=== PATIENT | male | born 1935 | race Caucasian/White ===

== ENCOUNTER 2017-02-07 20:54 | Emergency (ER) | payer MEDICARE, BC | END 2017-02-08 00:47 | disposition home or self-care (01) | LOC: D.ER 20:54 | DX: S42.031A Displaced fracture of lateral end of right clavicle, initial encounter for closed fracture (principal); W01.0XXA Fall on same level from slipping, tripping and stumbling without subsequent striking against object, initial encounter; Y93.89 Activity, other specified; Y92.129 Unspecified place in nursing home as the place of occurrence of the external cause ==

== ENCOUNTER 2017-02-22 10:19 | Inpatient (IN) | payer MEDICARE, BC ==
[~2017-02-22] VITALS: Ht 170.2 cm; Wt 63.5 kg
[2017-02-22 12:22] LABS: BASOPHILS 0 % (0-2); EOSINOPHILS 0.4 % (0-7); HEMATOCRIT 37.8 % (42.0-54.0); IMMATURE GRANULOCYTES 0.2 % (0-5); LYMPHOCYTES 11.6 % (15-50); MCHC 31.7 g/dL (31.0-37.0); MCV 97.7 fL (80.0-100.0); MEAN PLATELET VOLUME 9.9 fL (7.4-10.4); MONOCYTES 5.3 % (2-11); NEUTROPHILS 82.5 % (40-80); PLATELET COUNT 293 10x3/uL (130-400); RBC 3.87 10x6/uL (4.20-6.10); RDW 13.7 % (11.5-14.5)
[2017-02-22 12:37] LABS: INR 1.05 (0.85-1.17); PROTIME 13.6 SECONDS (11.6-15.0)
[2017-02-22 12:44] LABS: ALKALINE PHOSPHATASE 75 U/L (46-116); ALT (SGPT) 27 U/L (10-68); BILIRUBIN - TOTAL 0.29 mg/dL (0.2-1.3); CALC OSMOLALITY 285 mosm/kg (275-300); CALCIUM 8.5 mg/dL (8.5-10.1); CARBON DIOXIDE 30.5 mmol/L (21.0-32.0); CHLORIDE - SERUM 105 mmol/L (98-107); GLUCOSE 158 mg/dL (74-106); POTASSIUM - SERUM 3.9 mmol/L (3.5-5.1); PROTEIN - SERUM 7.3 g/dL (6.4-8.2); SODIUM 141 mmol/L (136-145); UREA NITROGEN 18 mg/dL (7-18); eGFR NON AFRICAN AMERICAN 76 mL/min (90-120)
[2017-02-22 13:04] LABS: APPEARANCE CLEAR (CLEAR); BILIRUBIN NEGATIVE (NEGATIVE); COLOR YELLOW (YELLOW); GLUCOSE NEGATIVE (NEGATIVE); KETONE NEGATIVE (NEGATIVE); LEUKOCYTE ESTERASE 1+ (NEGATIVE); NITRITE NEGATIVE (NEGATIVE); PROTEIN NEGATIVE (NEGATIVE); UROBILINOGEN NORMAL (NORMAL)
[2017-02-22 13:05] LABS: BACTERIA FEW /hpf (NONE SEEN); EPITHELIAL CELLS OCC /hpf (0-5); MUCUS <1+ /lpf (NONE SEEN); WHITE CELLS - URINE 0-5 /hpf (0-5)
--- NOTE | 2017-02-22 13:30 | NUR ---
RECEIVED TO FLOOR FROM ER, DAUGHTER AT BEDSIDE, ORIENTED TO ROOM, BED LOWEST POSITION WILL CONTINUE TO MONITOR
[2017-02-22] MEDS ORDERED: ARICEPT10 MG PO (13:57)
[2017-02-22] MEDS ORDERED: CARBIDOPA-LEVO1 EAC2 PO (13:58)
[2017-02-22] MEDS ORDERED: CALCIUM 600+D T1 TA1 PO (13:58)
[2017-02-22] MEDS ORDERED: COREG6.25 MG PO (13:59)
[2017-02-22] MEDS ORDERED: VITAMIN D31000 UNI2 PO (14:00)
[2017-02-22] MEDS ORDERED: NAMENDA10 MG PO (14:01)
[2017-02-22] MEDS ORDERED: HYDROCODON-ACE1 EAC7 PO (14:01)
[2017-02-22] MEDS ORDERED: SENNA PLUS TA1 UDTAB PO (14:02)
[2017-02-22] MEDS ORDERED: ULTRAM50 MG PO (14:03)
[2017-02-22] MEDS ORDERED: ACETAMINOPHEN325 MG PO (14:03)
[2017-02-22] MEDS ORDERED: EFFEXOR XR37.5 MG PO (14:04)
[2017-02-22 16:14] VITALS: BP 133/86
[2017-02-22 17:53] VITALS: BP 133/86; BMI 21.9
--- NOTE | 2017-02-22 19:15 | NUR ---
PT IS LYING ON RT SIDE, SEARCHED FOR IV, WAS ADVISED PT HAD IV IN RT FOREARM, NO IV FOUND, STARTED IV IN PT RT WRIST, PT RT HAND HAS CONTINUOUS SHAKING, UNSURE IF TIS IS NORMAL FOR PT, WILL REVIEW H&P. STARTED N/S ON PT, PT REPORTED PAIN AT 6 ADMIN MORPHINE ORDERED, PLACED CALL LIGHT ON BED WITHIN REACH AND BED IS IN LOW POSITION
[2017-02-22 20:00] VITALS: BP 129/89
--- NOTE | 2017-02-22 23:53 | NUR ---
SURGICAL TECHNOLOGIST WENT TO GET PT V/S AND PT HAS PULLED OUT IV IN RT FOREARM, PT TEMP IS 102.[address] TEJADA IN REGARDS TO AN ORDER TO BRING PT TEMP DOWN.
--- NOTE | 2017-02-22 23:58 | NUR ---
SPOKE TO CHARGE NURSE Chuyita AGUILERA RN IN REGARDS TO PT FEVER AND PENDING RETURN CALL FROM DR WILSON. ADVISED TO GIVE PT 650MG TYLENOL. ALREADY HAVE COOL RAG ON PT FOREHEAD WILL CONTINUE LUKASZ MONITOR
[2017-02-23] VITALS: BP 104/58; BP 96/54
--- NOTE | 2017-02-23 00:27 | NUR ---
RESITED PT IV TO LT WRIST, ASSISTED PT WIT TYLENOL PT REFUSED AT FIRST, EXPLAINED TEMP WAS AT 102.2 AND WE NEEDED TO GET IT LOWERED, APPLIED COLD WASH CLOTH TO FORHEAD WILL CONTINUE TO MONITOR
--- NOTE | 2017-02-23 01:06 | NUR ---
PT IS LYING ON BACK, EYES CLOSED, EVEN RISE AND FALL OF CHEST, NO SIGNS OF DISTRESS, WILL CONTINUE TO MONITOR. TEMP RECHECKED AND IS AT 100.4
--- NOTE | 2017-02-23 02:08 | NUR ---
WAD BLANKING PRESS ADJUSTER GAVE PT BATH AND PT PULLED OUT IV, WILL NEED TO RESITE AFTER ALLEE IS COMPLETE WITH BED BATH
[2017-02-23 03:47] VITALS: BP 91/45
--- NOTE | 2017-02-23 06:00 | NUR ---
EYES CLOSED RESPIRATIONS WITH EASE AND UNLABORED.
--- NOTE | 2017-02-23 07:30 | NUR ---
RECIEVED PT DURING WALKING ROUNDS, PT RESTING IN BED WITH NO COMPLAINTS OF PAIN OR DISCOMFORT. PT IS VERY SHAKEY AND IS GRABBING AT THINGS DURING ASSESSMENT. ATTEMPTED TO HELP CALM PT. ASSESSMENT DONE PER FLOWSHEET. BED IN LOW POSITION AND CALL LIGHT WITHIN REACH. WILL CONTINUE TO MONITOR.
[2017-02-23 08:29] VITALS: BP 125/82
[2017-02-23 12:33] LABS: BASOPHILS 0.1 % (0-2); EOSINOPHILS 0.5 % (0-7); HEMATOCRIT 31.9 % (42.0-54.0); HEMOGLOBIN 10.2 g/dL (13.5-17.5); IMMATURE GRANULOCYTES 0.1 % (0-5); LYMPHOCYTES 23.6 % (15-50); MCH 30.9 pg (26.0-34.0); MCV 96.7 fL (80.0-100.0); MEAN PLATELET VOLUME 9.8 fL (7.4-10.4); MONOCYTES 8.6 % (2-11); NEUTROPHILS 67.1 % (40-80); PLATELET COUNT 311 10x3/uL (130-400); RDW 13.9 % (11.5-14.5); WBC 8.4 10x3/uL (4.8-10.8)
[2017-02-23 13:01] LABS: ALBUMIN 2.7 g/dL (3.4-5.0); ANION GAP 11.8 mmol/L (8-16); BILIRUBIN - TOTAL 0.41 mg/dL (0.2-1.3); CARBON DIOXIDE 29.4 mmol/L (21.0-32.0); CREATININE - SERUM 1.2 mg/dL (0.6-1.3); POTASSIUM - SERUM 4.2 mmol/L (3.5-5.1); PROTEIN - SERUM 6.7 g/dL (6.4-8.2)
[2017-02-23 13:06] VITALS: BP 133/85
[2017-02-23 15:48] VITALS: Ht 170.2 cm; Wt 63.5 kg
[2017-02-23 16:29] VITALS: BP 121/79
[2017-02-23 20:00] VITALS: BP 149/76
--- NOTE | 2017-02-23 20:34 | NUR ---
AWAKE, WITH CONFUSION NOTED. PULLING AT ELAINE. ATTEMPTED TO REDIRECT WITHOUT SUCCESS. IV INFUSING TO RIGHT FOREARM WITHOUT REDNESS OR EDEMA NOTED. SCD INTACT. PIN ALARM IN PLACE. CL IN REACH
--- NOTE | 2017-02-23 23:08 | NUR ---
EYES CLOSED RESPIRATIONS WITH EASE AND UNLABORED.
[2017-02-24 01:31] LABS: BASOPHILS 0.1 % (0-2); EOSINOPHILS 0.3 % (0-7); HEMATOCRIT 28.8 % (42.0-54.0); HEMOGLOBIN 9.1 g/dL (13.5-17.5); IMMATURE GRANULOCYTES 0.4 % (0-5); LYMPHOCYTES 16.7 % (15-50); MCH 30.6 pg (26.0-34.0); MCHC 31.6 g/dL (31.0-37.0); MEAN PLATELET VOLUME 10.6 fL (7.4-10.4); NEUTROPHILS 75.5 % (40-80); RBC 2.97 10x6/uL (4.20-6.10); RDW 13.7 % (11.5-14.5)
[2017-02-24 01:37] LABS: PLATELET COUNT 219 10x3/uL (130-400); WBC 18.7 10x3/uL (4.8-10.8)
[2017-02-24 03:21] VITALS: BP 115/79
--- NOTE | 2017-02-24 03:29 | NUR ---
UNABLE TO ASSESS VERBAL PAIN DUE TO PATIENTS BASELINE STATUS.
--- NOTE | 2017-02-24 03:31 | NUR ---
RETURNED TO ROOM FROM OR. AROUSES TO VERBAL STIMULI. O2 @ 2L PER NC ON. SPO2 @ 97% VS 115/79 P 103 R 22 T 97.2 DRSG TO RIGHT HIP INTACT WITHOUT DRAINAGE NOTED. CL IN REACH. BOX ALARM ON AND ATTACHED TO PATIENT.
[2017-02-24 04:00] VITALS: BP 115/79
[2017-02-24 05:59] LABS: BASOPHILS 0.1 % (0-2); EOSINOPHILS 0 % (0-7); IMMATURE GRANULOCYTES 0.5 % (0-5); LYMPHOCYTES 7.1 % (15-50); MCH 31.2 pg (26.0-34.0); MCHC 33.5 g/dL (31.0-37.0); MEAN PLATELET VOLUME 10.2 fL (7.4-10.4); MONOCYTES 8.2 % (2-11); NEUTROPHILS 84.1 % (40-80); RDW 15.3 % (11.5-14.5)
[2017-02-24 06:20] LABS: HEMATOCRIT 37.9 % (42.0-54.0); HEMOGLOBIN 12.7 g/dL (13.5-17.5); RBC 4.07 10x6/uL (4.20-6.10)
[2017-02-24 06:21] LABS: MCV 93.1 fL (80.0-100.0); PLATELET COUNT 263 10x3/uL (130-400)
[2017-02-24 06:24] LABS: ALBUMIN 2.4 g/dL (3.4-5.0); BILIRUBIN - TOTAL 1.05 mg/dL (0.2-1.3); CALCIUM 7.7 mg/dL (8.5-10.1); CREATININE - SERUM 1.3 mg/dL (0.6-1.3); PROTEIN - SERUM 5.9 g/dL (6.4-8.2)
[2017-02-24 06:30] LABS: ANION GAP 18.3 mmol/L (8-16); CARBON DIOXIDE 21.2 mmol/L (21.0-32.0); POTASSIUM - SERUM 5.5 mmol/L (3.5-5.1)
--- NOTE | 2017-02-24 07:30 | NUR ---
RECIEVED PT DURING WALKING ROUNDS, PT RESTING IN BED WITH NO COMPLAINTS OF PAIN OR DISCOMFORT AT THIS TIME. ASSESSMENT DONE PER FLOWSHEET. BED IN LOW POSITION AND CALL LIGHT WITHIN REACH. WILL CONTINUE TO MONITOR.
[2017-02-24 09:15] VITALS: BP 108/83
--- NOTE | 2017-02-24 09:27 | OP ---
PATIENT NAME: BRIGETTE SUE MEDICAL RECORD: [id number] :34 LOCATION:[id number] ADMISSION DATE:02/22/17 SURGEON: LANI BROWN DO OPERATION DATE: 02/22/17 DATE OF OPERATION: 02/23/2017 PROCEDURE PERFORMED: A right intramedullary exchange now from a short nail to a long nail. INDICATIONS: Mr. Sue is an 81-year-old demented male who had had a right hip intertrochanteric hip fracture approximately 6 weeks ago, then fell 3-4 days ago and sustained a periprosthetic femoral shaft fracture. It was distal to the implant of the short nail that was put in and it fractured the femur distal to that. He had been on the OR schedule and had not been able to be operated on for the last few days and I was asked to do the operation per Dr. Abebe. The patient's family was called and discussed the treatment options and they decided to proceed forward, as well as the risks and benefits were discussed with them, decided to proceed forward with the procedure. PREOPERATIVE DIAGNOSIS: Right periprosthetic femoral shaft fracture that is closed. POSTOPERATIVE DIAGNOSIS: Right periprosthetic femoral shaft fracture that is closed. DESCRIPTION OF PROCEDURE: Mr. Sue was taken to the operative suite, placed in supine position, placed over on the fracture table and given general anesthetic by anesthesia. A time-out was done at that time and Ancef was given to the patient as preoperative antibiotics. During the timeout, there was the correct side and site and correct procedures we are doing. After that, the patient was placed on the fracture table. The right leg was placed in a stirrup. The left leg was strapped to the same arm of the fracture table with a pillow around it, every bony prominences well padded at that time. The patient was slid down to the post and traction was placed on the right femur. At that time, x-rays were taken to assess correct position during the operation. The site was then prepped and draped in sterile fashion with ChloraPrep and procedure began at that time. The short nail that was taken out was a Synthes TFN nail. Incision was first made at the greater trochanter just proximal to that. The set screw was backed off and then the lag screw that was up into the femoral head and neck was taken out. At that time, the extraction device was placed into the nail itself at the trochanter and the distal locking screw was removed also. The nail extractor after the lag screw and distal locking screw were removed was then used to back the nail out. At that time, the attention was drawn to the fracture itself, spiral fracture of the femoral shaft, and an incision was made on the lateral side of the femur for the femoral shaft to be accessed. The fracture was then reduced using a reduction clamp and a single cable was passed around the femur, careful to not catch any other soft tissue directly around the femur and tightened and then cramped in, the excess cable was cut off. The fracture then seemed to be in good position and excellent reduction. Then, the guidewire for the gamma nail was used and entered into the trochanter and advanced down the femoral shaft. Once I past the fracture site and into the distal femur just above the patella, it was then reamed starting at 11 and reamed to a 13. The size was also taken at that time to be a 400 mm nail and 11 mm in diameter. The nail was then placed down the shaft to the distal extent OPERATIVE REPORT [id number] BRIGETTE SUE under fluoroscopy, ensuring good placement. At that time, the lag screw was placed into the femoral neck and head, a size of 100 mm. This was entered under fluoroscopy as well, ensuring good position both on the AP and lateral. The set screw was then placed. The proximal portion of the nail and the distal locking screws were placed at that time and done with perfect circles and under fluoroscopy, 2 distal locking screws were placed. The wounds were then copiously irrigated. At that time, the patient was given a unit of packed red cells and had another one before when he arrived to PACU. After being irrigated, the IT band along the lateral side was closed with 0 Vicryl in the [id number] stitches as well as a running stitch and the skin was closed using 2-0 inverted interrupted sutures. The distal locking screw incisions were closed with 3-0 Monocryl in horizontal mattress fashion. The skin then at the larger incisions more proximal to the distal screws were closed using 2 ZipLine devices. The leg was cleaned thoroughly and Adaptic, 4 x 4s, ABD and Medipore tape were placed on the proximal incisions and a single 4 x 4 and Tegaderm were placed over the distal incisions. The patient was awakened in the operating room in stable condition and taken to PACU for recovery. ESTIMATED BLOOD LOSS: 600 mL. TRANSINT:[id number] Voice Confirmation ID: [id number] DOCUMENT ID: [id number] LANI BROWN DO at 0927 CC: [id number] DICTATION DATE: 02/24/17300 HAND TENNIS BALL COVERER: 02/24/17 0545 ADM IN [place] [id number] [place] [address]
[2017-02-24 12:57] VITALS: BP 114/59
--- NOTE | 2017-02-24 13:50 | NUR ---
PT PULLED DRESSING OFF HIP AT THIS TIME, REAPPLIED DRESSING. WILL CONTINUE TO MONITOR.
[2017-02-24 15:45] VITALS: BP 111/65
[2017-02-24 20:00] VITALS: BP 92/51
[2017-02-25] VITALS (12 sets, daily range): BP systolic 96–148; BP diastolic 37–97
--- NOTE | 2017-02-25 03:08 | NUR ---
ASSESSED, AT THE BEGINNING OF THE SHIFT. THE RIGHT LEG HAS AN INCISION TO THE HIP WITH A DRESSING CLEAN, DRY AND INTACT. MEDS WERE CRUSHED AND GIVEN WITH PUDDING. HIS O2 IS IN PLACE MOST OF THE TIME AND THERE IS A ELAINE ALSO THAT IS DRAINING DERREK URINE. WHEN CHECKED ON THE TELEMETRY SHOWED SINUS TACH AT 103. WE ARE MAKING SURE HE IS TURNING FOR COMFORT AND SKIN CARE. THE BED IS LOW, RAILS UP X'S 2 WITH A BED ALARM IN PLACE AND THE CALL LIGHT AT HAND.
[2017-02-25 05:36] LABS: LYMPHOCYTES 22.5 % (15-50); MCH 30.9 pg (26.0-34.0); MCHC 33.9 g/dL (31.0-37.0); MEAN PLATELET VOLUME 9.9 fL (7.4-10.4); PLATELET COUNT 221 10x3/uL (130-400); RDW 15.4 % (11.5-14.5)
[2017-02-25 05:37] LABS: HEMATOCRIT 23.6 % (42.0-54.0); MCV 91.1 fL (80.0-100.0); RBC 2.59 10x6/uL (4.20-6.10); WBC 9.6 10x3/uL (4.8-10.8)
[2017-02-25 06:19] LABS: ALBUMIN 1.9 g/dL (3.4-5.0); BILIRUBIN - TOTAL 0.65 mg/dL (0.2-1.3); CALCIUM 7.5 mg/dL (8.5-10.1); CARBON DIOXIDE 25.7 mmol/L (21.0-32.0); CREATININE - SERUM 1.1 mg/dL (0.6-1.3); PROTEIN - SERUM 5.3 g/dL (6.4-8.2)
[2017-02-25 06:21] LABS: ANION GAP 11.2 mmol/L (8-16); POTASSIUM - SERUM 3.9 mmol/L (3.5-5.1)
--- NOTE | 2017-02-25 07:45 | NUR ---
PT ASSESSMENT COMPLETE SEE FLOWSHEET DRESSING TO RIGHT HIP INTACT. PIV TO RIGHT FORARM.
--- NOTE | 2017-02-25 10:10 | NUR ---
LYING SUPINE WITH HOB 0 DEGREES. IV PATENT AND AARON MAT ALARM IN USE. DOOR OPEN AND SRX2. RESPIRATIONS EVEN AND NON LABORED. CALL LIGHT IN REACH, WILL CONTINUE WITH PLAN OF CARE.
--- NOTE | 2017-02-25 11:40 | NUR ---
INITITATED FIRST OF 2 UNITS OF PRBCS PER ORDER PER LITHOGRAPH PRINTER.
--- NOTE | 2017-02-25 14:33 | NUR ---
NUTRITION MONITORING & EVAL CHART REVIEWED, PT SLEEPING SOUNDLY. PUREED/HONEY THICK LIQUID DIET. ONLY 25% INTAKE LUNCH. WILL CONTINUE TO MONITOR PO INTAKE, PROVIDE CURRENT DIET. RD FOLLOWING
--- NOTE | 2017-02-25 15:00 | NUR ---
PT TOLERATED 1ST UNIT WELL PIV RESITED X 2 FOR BLOOD INFUSION DUE TO PT PULLING IT OUT. LAST RESITE WAS 20 GA TO LEFT FORARM WRAPPED LOOSLY WITH ALINA TO PROTECT.
--- NOTE | 2017-02-25 15:45 | NUR ---
2ND UNIT INITIATED PT WITH NO COMPLAINTS TOLERATED 1ST UNIT WELL B/P STABLE AND PT REMAINS IN SINUS TACH PER MONITOR.
--- NOTE | 2017-02-25 17:40 | NUR ---
PT VOMITING PROJECTILE COFFEE GROUND EMESIS LARGE AMOUNT PT TEMP INCREASED TO 102.[address] BROWN DIRECTOR NEW PRODUCT FOR DR TEJADA ORDER RECIEVED TO CONSULT GI AND GET STAT H&H DR SHAH ON FLOOR NOTIFIED OF CONSULT AND ORDER RECIEVED TO TRANSFER TO ICU. REPORT CALLED TO JOY IN ICU AND PT TRANSFTERED VIA BED TO ROOM 2308.
[2017-02-25 17:46] LABS: HEMATOCRIT 28.2 % (42.0-54.0); HEMOGLOBIN 9.6 g/dL (13.5-17.5)
--- NOTE | 2017-02-25 18:28 | NUR ---
PT DAUGHTER ATTEMPTED TO BE NOTIFIED VIA PHONE MESSAGE LEFT FOR RETURN CALL
--- NOTE | 2017-02-25 18:29 | NUR ---
183 PT RECIEVED FROM THE FLOOR VIA BED .. NGT IS IN LEFT NARE PLACED TO THE ILWS ON ARRIVAL AND 100CC OF CLEAR DIAZ COFFEE GROUND EMSIS RETURNED.. PT HAS A PIV IN THE LEFT FOREARM SECURED WITYH KERLEX GAUZE.. THERE IS FLUID NS INFUSING AT 100CC/HR.. ELAINE CATH IN PLACE WITH CLEAR YELLOW URINR IN COLLECTION BAG.. SR ON HEART MONITOR.. ROOM AIR O2.. PT IS NOT VERY CONVERSIVE BUT DOES FOLLOW COMMANDS.. 1834 PORT X RAY DONE AT THE BEDSIDE..
--- NOTE | 2017-02-25 19:15 | NUR ---
RECEIVED CARE OF PT, ASSESSMENT PER FLOWSHEET. PT ORIENTED TO SELF ONLY, DOES FOLLOW COMMANDS AT TIMES, RT THIGH DRESSING CDI, PPP, HR ST AT A RATE OF 114. POSITIONED FOR COMFORT, NGT PLACEMENT VERIFIED WITH SMALL AIR BOLUS, LIGHT DIAZ TO PINK DRAINAGE NOTED PER SUCTION.
--- NOTE | 2017-02-25 21:28 | NUR ---
DR SHAH CALLED, UPDATED REGARDING PT CONDITION AND STATUS, ORDERS RECEIVED.
--- NOTE | 2017-02-25 23:15 | NUR ---
REASSESSMENT PER FLOWSHEET, NO ACUTE CHANGES NOTED AT THIS TIME, CONT TO MONITOR.
[2017-02-26] VITALS (24 sets, daily range): BP systolic 102–179; BP diastolic 63–98
[2017-02-26 01:00] LABS: HEMATOCRIT 29.2 % (42.0-54.0); HEMOGLOBIN 9.9 g/dL (13.5-17.5)
--- NOTE | 2017-02-26 01:40 | NUR ---
PT RESTING IN BED WITH EYES CLOSED, VSS, CONT POC.
--- NOTE | 2017-02-26 02:55 | NUR ---
REASSESSMENT PER FLOWSHEET. HR SR ON CM AT A RATE OF 97, POSITIONED FOR COMFORT, RT THIGH DRESSING REMAINS CDI.
--- NOTE | 2017-02-26 06:00 | NUR ---
NO VISITORS PRESENT AT THIS TIME, VSS, CONT POC.
[2017-02-26 06:18] LABS: BASOPHILS 0.1 % (0-2); EOSINOPHILS 0.2 % (0-7); HEMATOCRIT 28.5 % (42.0-54.0); HEMOGLOBIN 9.6 g/dL (13.5-17.5); IMMATURE GRANULOCYTES 0.3 % (0-5); LYMPHOCYTES 14.1 % (15-50); MCHC 33.7 g/dL (31.0-37.0); MEAN PLATELET VOLUME 9.7 fL (7.4-10.4); MONOCYTES 9.3 % (2-11); PLATELET COUNT 249 10x3/uL (130-400); RDW 15.1 % (11.5-14.5); WBC 10.1 10x3/uL (4.8-10.8)
[2017-02-26 06:19] LABS: MCV 89.1 fL (80.0-100.0)
[2017-02-26 06:23] LABS: INR 1.29 (0.85-1.17); PROTIME 15.9 SECONDS (11.6-15.0)
[2017-02-26 06:29] LABS: ALBUMIN 1.9 g/dL (3.4-5.0); ALKALINE PHOSPHATASE 34 U/L (46-116); ALT (SGPT) 19 U/L (10-68); BILIRUBIN - TOTAL 1.43 mg/dL (0.2-1.3); CALC OSMOLALITY 268 mosm/kg (275-300); CALCIUM 7.3 mg/dL (8.5-10.1); CARBON DIOXIDE 25.5 mmol/L (21.0-32.0); CHLORIDE - SERUM 103 mmol/L (98-107); GLUCOSE 88 mg/dL (74-106); POTASSIUM - SERUM 3.5 mmol/L (3.5-5.1); PROTEIN - SERUM 5.5 g/dL (6.4-8.2); SODIUM 134 mmol/L (136-145); UREA NITROGEN 17 mg/dL (7-18); eGFR NON AFRICAN AMERICAN 76 mL/min (90-120)
--- NOTE | 2017-02-26 07:30 | NUR ---
REC'ED REPORT ON OUT GOING RN - PT LYING SUPINE IN BED - RESIRATIONS REG RATE AND RHYTHM
--- NOTE | 2017-02-26 08:00 | NUR ---
ANESTHEIOLOGIST AND TEAM AT [facility] TO SET UP FOR EGD THIS ALucia KEYES ON UNIT FOR ASSESSMENT CPOC
--- NOTE | 2017-02-26 10:15 | NUR ---
PROCEDURE COMPLETE SEE FLOW SHEET
--- NOTE | 2017-02-26 10:22 | NUR ---
EGD WITH TEVA COMPLETED AT 10:15 - DR. SHAH STATED DIET SIPS OF CLEAR LIQUIDS, TO ORDER ZOFRAN DRIP, CARAFATE, AND IF STABLE MAY TRANSFERR TOMORROW. SEE FLOW SHEET
--- NOTE | 2017-02-26 11:00 | NUR ---
DR. SHAH ON UNIT - DISCUSSED PROCEDURE OUT COME WITH DTR (POA) - CPOC
[2017-02-26 11:13] LABS: HEMATOCRIT 28.4 % (42.0-54.0); HEMOGLOBIN 9.5 g/dL (13.5-17.5)
[2017-02-26 11:46] LABS: APPEARANCE CLEAR (CLEAR); BILIRUBIN NEGATIVE (NEGATIVE); COLOR YELLOW (YELLOW); GLUCOSE NEGATIVE (NEGATIVE); KETONE NEGATIVE (NEGATIVE); LEUKOCYTE ESTERASE NEGATIVE (NEGATIVE); NITRITE NEGATIVE (NEGATIVE); PROTEIN TRACE mg/dL (NEGATIVE); SPECIFIC GRAVITY 1.005 (1.005-1.020); UROBILINOGEN NORMAL (NORMAL)
[2017-02-26 11:47] LABS: BACTERIA NONE SEEN /hpf (NONE SEEN); EPITHELIAL CELLS 0-5 /hpf (0-5); RED CELLS - URINE 0-5 /hpf (0-5); WHITE CELLS - URINE NSEEN /hpf (0-5)
--- NOTE | 2017-02-26 12:30 | NUR ---
PT MD'S ORDERS PT UPRIGHT TO ADMINISTER CRUSHED MEDICATIONS - PT ABLE TO TOLERATE SWALLOWING CRUSHED MEDICATINS IN APPLE SAUSE -
--- NOTE | 2017-02-26 15:00 | NUR ---
ASSESSMENT COMPLETE - PT RESTING WITH EYES CLOSED - MORE ALERT - ABLE TO ANSWER QUESITONS APPROPRIATELY - APPEARS TO SWALLOW WITH OUT DISTRESS - CPOC
--- NOTE | 2017-02-26 16:24 | NUR ---
I&O COMPLETE - PT RESTING RESPIRATIONS REG/RATE/RHYTHM - EAISLY AWAKENED WITH TACTILE STIMULI CPOC
--- NOTE | 2017-02-26 17:47 | NUR ---
SAT PT UP IN BED PER MD DIRECTED - FED PT - PT ATE APPOX 70% DINNER TRAY WITHOUT ANY DISTRESS. PT VSS - CPOC
--- NOTE | 2017-02-26 18:15 | NUR ---
PT RESTING WITH EYES CLOSED - VSS - NO ACUTE DISTRESS - CPOC
[2017-02-26 19:10] LABS: HEMOGLOBIN 9.2 g/dL (13.5-17.5)
--- NOTE | 2017-02-26 19:15 | NUR ---
RESUMED CARE OF PT, ASSESSMENT PER FLOWSHEET. HR SR ON CM AT A RATE OF 95, ON 2L O2 VIA NC, POSITIONED FOR COMFORT, RT THIGH DRESSING CDI, PPP. WILL MONITOR.
--- NOTE | 2017-02-26 21:10 | NUR ---
NO VISITORS PRESENT AT THIS TIME, PT POSITIONED FOR COMFORT SUPPORTED WITH PILLOWS, VSS.
--- NOTE | 2017-02-26 23:05 | NUR ---
1 OF 1 UNIT OF PRBC'S INITIATED PER MD BLOOD PARAMETERS ORDER, WILL MONITOR CLOSELY.
--- NOTE | 2017-02-26 23:15 | NUR ---
REASSESSMENT PER FLOWSHEET, HR SR AT A RATE OF 81 ON MONITOR, NO ACUTE CHANGES NOTED AT THIS TIME, VSS.
[2017-02-27] VITALS (13 sets, daily range): BP systolic 129–159; BP diastolic 72–106
--- NOTE | 2017-02-27 01:00 | NUR ---
PT POSITIONED FOR COMFORT IN BED SUPPORTED WITH PILLOWS, PRBC'S STILL INFUSING AT THIS TIME. VSS, CONT TO MONITOR.
--- NOTE | 2017-02-27 03:00 | NUR ---
REASSESSMENT PER FLOWSHEET, HR SR ON CM, POSITIONED FOR COMFORT, CONT POC.
[2017-02-27 05:07] LABS: BASOPHILS 0 % (0-2); HEMATOCRIT 30.3 % (42.0-54.0); HEMOGLOBIN 10.3 g/dL (13.5-17.5); IMMATURE GRANULOCYTES 0.4 % (0-5); LYMPHOCYTES 19.1 % (15-50); MCH 30.1 pg (26.0-34.0); MCV 88.6 fL (80.0-100.0); MEAN PLATELET VOLUME 9.6 fL (7.4-10.4); MONOCYTES 10.5 % (2-11); PLATELET COUNT 267 10x3/uL (130-400); RBC 3.42 10x6/uL (4.20-6.10); RDW 14.7 % (11.5-14.5); WBC 7.7 10x3/uL (4.8-10.8)
[2017-02-27 05:11] LABS: INR 1.13 (0.85-1.17); PROTIME 14.4 SECONDS (11.6-15.0)
[2017-02-27 05:49] LABS: ALKALINE PHOSPHATASE 35 U/L (46-116); ALT (SGPT) 8 U/L (10-68); BILIRUBIN - DIRECT 0.26 mg/dL (0.00-0.30); BILIRUBIN - TOTAL 1.22 mg/dL (0.2-1.3); CALC OSMOLALITY 267 mosm/kg (275-300); CALCIUM 7.4 mg/dL (8.5-10.1); CARBON DIOXIDE 24.5 mmol/L (21.0-32.0); CHLORIDE - SERUM 103 mmol/L (98-107); CREATININE - SERUM 0.8 mg/dL (0.6-1.3); GLUCOSE 89 mg/dL (74-106); POTASSIUM - SERUM 3.4 mmol/L (3.5-5.1); PROTEIN - SERUM 5.2 g/dL (6.4-8.2); SODIUM 134 mmol/L (136-145); UREA NITROGEN 14 mg/dL (7-18); eGFR NON AFRICAN AMERICAN > 90 mL/min (90-120)
--- NOTE | 2017-02-27 05:59 | NUR ---
PT INCONTINENT OF SOFT, LIGHT BROWN STOOL. COMPLETE LINEN CHANGE AND PARTIAL BATH DONE, PT TOLERATED WELL, VSS.
--- NOTE | 2017-02-27 09:15 | NUR ---
BILATERAL SOFT WRIST RESTRAINTS REMOVED. PT TOLERATED WELL. NOT PULLING AT LINES OR ELAINE AT THIS TIME. WILL CONTINUE TO MONITOR. RIGHT FA PIC D/C'D WITH CATH TIP INTACT.
--- NOTE | 2017-02-27 09:59 | NUR ---
PT'S DAUGHTER CALLED AND WAS UPDATED ON PT'S STATUS.
--- NOTE | 2017-02-27 11:00 | NUR ---
PT HAD COMPLETE BATH AND LINEN CHANGE. TOLERATED WELL. ELAINE CARE WITH SURE STEP ELAINE WIPES.
[2017-02-27 11:08] LABS: HEMOGLOBIN 10.4 g/dL (13.5-17.5)
--- NOTE | 2017-02-27 12:57 | NUR ---
PHYSICAL THERAPY AT BEDSIDE. PT UP TO CHAIR WITH ASSIST. TOLERATED WELL. CALL LIGHT WITHIN REACH.
--- NOTE | 2017-02-27 14:19 | NUR ---
REPORT CALLED TO TRAVIS SALVADOR. NOTIFIED PT'S DAUGHTER OF TRANSFER.
--- NOTE | 2017-02-27 14:57 | NUR ---
PT TAKEN BY CHAIR TO ROOM 2213. TRANSFERRED WITH PHYSICAL THERAPY BACK TO BED. TOLERATED WELL. CALL LIGHT WITHIN REACH. BED ALARM ON. HANDOFF REPORT GIVEN TO TRAVIS SALVADOR.
--- NOTE | 2017-02-27 15:01 | NUR ---
RECEIVED PATIENT TO ROOM 2213 VIA ROLLING CHAIR FROM THE ICU. TRAVIS GIRON AND [place], PHYSICAL THERAPIST WITH THE PATIENT.
--- NOTE | 2017-02-27 17:32 | NUR ---
SCHEDULED MEDICATIONS CRUSHED AND GIVEN TO PATIENT IN CHOCOLATE PUDDING. PATIENT TOLERATED WELL. CALL LIGHT IN PATIENT'S REACH. WILL MONITOR.
[2017-02-27 19:02] LABS: HEMATOCRIT 32.7 % (42.0-54.0); HEMOGLOBIN 11.1 g/dL (13.5-17.5)
--- NOTE | 2017-02-27 22:00 | NUR ---
PT HAD LARGE SIZE BM, ODOROUS, AND VERY LOOSE. PT HAD RED SKIN BREAKDOWN ON LT SIDE OF BUTTOCK APPLIED SKIN BARRIER
[2017-02-28] VITALS (7 sets, daily range): BP systolic 121–142; BP diastolic 76–89
[2017-02-28 03:42] LABS: BASOPHILS 0.1 % (0-2); EOSINOPHILS 1.3 % (0-7); HEMATOCRIT 29.7 % (42.0-54.0); HEMOGLOBIN 10.1 g/dL (13.5-17.5); IMMATURE GRANULOCYTES 0.3 % (0-5); MCH 30.1 pg (26.0-34.0); MCV 88.4 fL (80.0-100.0); MEAN PLATELET VOLUME 9.2 fL (7.4-10.4); MONOCYTES 10.6 % (2-11); NEUTROPHILS 66.7 % (40-80); PLATELET COUNT 306 10x3/uL (130-400); RBC 3.36 10x6/uL (4.20-6.10); RDW 14.7 % (11.5-14.5)
--- NOTE | 2017-02-28 03:47 | NUR ---
EYES CLOSED RESPIRATIONS WITH EASE AND UNLABORED.
[2017-02-28 03:49] LABS: ALBUMIN 1.9 g/dL (3.4-5.0); ALKALINE PHOSPHATASE 38 U/L (46-116); ALT (SGPT) 9 U/L (10-68); BILIRUBIN - TOTAL 0.98 mg/dL (0.2-1.3); CALC OSMOLALITY 273 mosm/kg (275-300); CALCIUM 7.5 mg/dL (8.5-10.1); CHLORIDE - SERUM 104 mmol/L (98-107); CREATININE - SERUM 0.9 mg/dL (0.6-1.3); GLUCOSE 113 mg/dL (74-106); POTASSIUM - SERUM 3.3 mmol/L (3.5-5.1); PROTEIN - SERUM 5.5 g/dL (6.4-8.2); SODIUM 137 mmol/L (136-145); UREA NITROGEN 10 mg/dL (7-18); eGFR NON AFRICAN AMERICAN 86 mL/min (90-120)
--- NOTE | 2017-02-28 07:50 | NUR ---
ASSESSMENT COMPLETE. IV TO L FA PATENT. 1/2 NS INFUSING AT 75 CC/HR, PROTONIX AT 10 CC/HR, AND ZOFRAN AT 4.7 CC/HR VIA PUMP. DRESSING INTACT TO R HIP. ELAINE PATENT DRAINING YELLOW URINE. DENIES ANY NEEDS AT THIS TIME.
--- NOTE | 2017-02-28 10:00 | NUR ---
SITTING UP IN CHAIR. CALL LIGHT WITHIN REACH. DENIES ANY NEEDS AT THIS TIME.
--- NOTE | 2017-02-28 10:54 | NUR ---
Patient Name: BRIGETTE LIU Admission Status: ER Accout number: [id number] Admission Date: 02-22-2017 : 1935 Admission Diagnosis:PERIPROSTH FRACTURE AROUND INTERNAL PROSTH R HIP [place], [place] Attending: RUBEN Current LOS: 6 Anticipated DC Date: Planned Disposition: Alf Facility Primary Insurance: MEDICARE A & B Discharge Planning Comments: CM met with patient and attempted to discuss discharge planning needs. Patient is very confused and unable to answer any questions. I called patients daughter Nanci Angulo ([phone]) she stated that the patient is a resident of [facility]. He stays confused per his daughter. Patient has lived there a little over a year. CM will continue to follow and assist as needed, [facility] [phone] Nanci Angulo (daughter) [phone] Welder Apprentice Combination: Dodie Parsons * Is the patient Alert and Oriented? No 0 * PCP [facility] 0 * Pharmacy [facility] 0 * Preadmission Environment Detention Longterm 0 * Facility Name [facility] 0 * List name and contact numbers for known caregivers / representatives who currently or will assist patient after discharge: NANCI ANGULO (DAUGHTER) [phone] 0 * Additional services required to return to the preadmission environment? Yes 0 * Can the patient safely return to the preadmission environment? Yes 0 * Has this patient been hospitalized within the prior 30 days at any hospital? No 0 Grand Total: 0
[2017-02-28 11:22] LABS: HEMATOCRIT 32.8 % (42.0-54.0)
--- NOTE | 2017-02-28 17:00 | NUR ---
RESTING QUIETLY IN BED. NO CHANGES NOTED AT PRESENT.
--- NOTE | 2017-03-01 00:06 | NUR ---
ENGRAVER LETTER WENT TO DO VITALS AT 2300, PT HAD PULLED DRESSING ON RT HIP OFF, WAS TUGGING AT CATHETER AND TRYING TO D/C IV AT THE SAME TIME, CALLED BACKFILLER IN REGARDS TO WHOME TO CALL TO HAVE CATHETER D/C. SAMPSON ADVISED TO CALL GUERRERO TO SEE IF SHE IS THE ONE TO GIVE ORDERS ON PT, PER GUERRERO TEJADA WOULD BE THE ONE TO CALL SINCE PT IS POST OP. CALLED DR BROWN AND WAS GIVEN ORDERS TO D/C CATHETER, ADMIN ATIVAN .5 AND REDRESS PT DRESSING. BED IN LOW POSITION, CALL LIGHT WITHIN REACH
--- NOTE | 2017-03-01 00:36 | NUR ---
PATIENT IS LAYING IN BED STAIRING AT THE CEILING SPEAKING A FOREIGN LANGUAGE. PATIENT IS HOLDING THE BLANKET AND SHEET AND BALLING IT UP, I TRIED TO ASSIST PATIENT WITH HIS COVER, HE DID NOT LOOK AT ME AND CONTINUED TO TUG AT HIS BLANKET AND SPEAK TO THE CEILING.
[2017-03-01 04:36] LABS: ALBUMIN 2.1 g/dL (3.4-5.0); ALKALINE PHOSPHATASE 45 U/L (46-116); ALT (SGPT) 9 U/L (10-68); BILIRUBIN - TOTAL 0.82 mg/dL (0.2-1.3); CALC OSMOLALITY 273 mosm/kg (275-300); CALCIUM 7.7 mg/dL (8.5-10.1); CARBON DIOXIDE 29.6 mmol/L (21.0-32.0); CHLORIDE - SERUM 104 mmol/L (98-107); CREATININE - SERUM 0.8 mg/dL (0.6-1.3); GLUCOSE 91 mg/dL (74-106); POTASSIUM - SERUM 3.6 mmol/L (3.5-5.1); PROTEIN - SERUM 5.8 g/dL (6.4-8.2); SODIUM 138 mmol/L (136-145); eGFR NON AFRICAN AMERICAN > 90 mL/min (90-120)
[2017-03-01 04:37] LABS: UREA NITROGEN 7 mg/dL (7-18)
[2017-03-01 07:02] LABS: BASOPHILS 0.4 % (0-2); EOSINOPHILS 2.7 % (0-7); HEMOGLOBIN 10.8 g/dL (13.5-17.5); IMMATURE GRANULOCYTES 0.7 % (0-5); LYMPHOCYTES 19.4 % (15-50); MCH 31.4 pg (26.0-34.0); MCHC 32.7 g/dL (31.0-37.0); MEAN PLATELET VOLUME 10.6 fL (7.4-10.4); MONOCYTES 9.6 % (2-11); NEUTROPHILS 67.2 % (40-80); RBC 3.44 10x6/uL (4.20-6.10); RDW 18.6 % (11.5-14.5); WBC 6.8 10x3/uL (4.8-10.8)
[2017-03-01 07:03] LABS: MCV 95.9 fL (80.0-100.0); PLATELET COUNT 409 10x3/uL (130-400)
--- NOTE | 2017-03-01 07:30 | NUR ---
ASSESSMENT PER FLOW SHEET.PT HAS BEEN MOVED TO ROOM 2207 FOR SAFETY.BED ALARM BED ON AND FUNCTIONING.DRESSING RIGHT HIP IN PLACE AND INTACT,MINIMAL DRAINAGE.RED SOFIA NOTED TO BUTTOCKS.DOOR OPEN TO MONITOR
[2017-03-01 08:22] VITALS: BP 137/80
[2017-03-01 12:02] VITALS: BP 131/85
[2017-03-01] MEDS ORDERED: ELIQUIS2.5 MG PO (12:56)
[2017-03-01] MEDS ORDERED: CARAFATE1 G/10 ML PO (13:25)
[2017-03-01] MEDS ORDERED: PROTONIX40 MG PO (13:26)
--- NOTE | 2017-03-01 13:34 | NUR ---
PATIENT BEING DISCHARGED BACK TO [facility] TODAY. DAUGHTER NANCI NOTIFIED AND IMM WENT OVER. DISCHARGE PAPERWORK SENT TO MORNING SUN. CM WILL CONTINUE TO ASSIST
[2017-03-01] MEDS ORDERED: BAYER CHEWABLE81 MG PO (13:44)
--- NOTE | 2017-03-01 15:18 | NUR ---
REPORT TO JORGE CODY,SPOKE WITH SHAZIA.
--- NOTE | 2017-03-01 15:54 | NUR ---
IV DCD WITH CATH INTACT.
--- NOTE | 2017-03-01 16:01 | NUR ---
LEFT UNIT WITH [facility] FOR TRANSPORT TO [facility]
--- NOTE | 2017-03-01 16:53 | NUR ---
PT DISCHARGED BACK TO [facility] VIA EMS TO A SKILLED BED
== END 2017-03-01 16:01 | DRG 480 ==
LOC: D.ER 10:19 → D.MS 12:31 → D.ICU 02-25 18:13 → D.MS 02-27 14:24
PROVIDERS: Anesthesiology; Emergency Medicine; Family Medicine; Internal Medicine Gastroenterology; Orthopaedic Surgery; ADMIT Orthopaedic Surgery
PROC: 0QH836Z Insertion of Intramedullary Internal Fixation Device into Right Femoral Shaft, Percutaneous Approach (ICD-10-PCS; principal; 2017-02-23 12:00)
PROC: 0DB68ZX Excision of Stomach, Via Natural or Artificial Opening Endoscopic, Diagnostic (ICD-10-PCS; 2017-02-26)
DX: M97.01XA Periprosthetic fracture around internal prosthetic right hip joint, initial encounter (principal); K22.6 Gastro-esophageal laceration-hemorrhage syndrome; K22.11 Ulcer of esophagus with bleeding; F03.90 Unspecified dementia, unspecified severity, without behavioral disturbance, psychotic disturbance, mood disturbance, and anxiety; I10 Essential (primary) hypertension; R13.10 Dysphagia, unspecified; G20 Parkinson's disease; Z87.891 Personal history of nicotine dependence

== ENCOUNTER 2017-07-07 11:15 | Day surgery (SDC) | payer MEDICARE, BC ==
[~2017-07-07 11:15] MED LIST: ACETAMINOPHEN325 MG PO; ARICEPT10 MG PO; BAYER CHEWABLE81 MG PO; CALCIUM 600+D T1 TA1 PO; CARAFATE1 G/10 ML PO; CARBIDOPA-LEVO1 EAC2 PO; COREG6.25 MG PO; EFFEXOR XR37.5 MG PO; ELIQUIS2.5 MG PO; HYDROCODON-ACE1 EAC7 PO; NAMENDA10 MG PO; PROTONIX40 MG PO; SENNA PLUS TA1 UDTAB PO; ULTRAM50 MG PO; VITAMIN D31000 UNI2 PO
[2017-07-07 12:29] LABS: BASOPHILS 0.1 % (0-2); EOSINOPHILS 1.2 % (0-7); HEMATOCRIT 44.6 % (42.0-54.0); HEMOGLOBIN 14.5 g/dL (13.5-17.5); IMMATURE GRANULOCYTES 0.3 % (0-5); LYMPHOCYTES 27.7 % (15-50); MCH 30.5 pg (26.0-34.0); MCHC 32.5 g/dL (31.0-37.0); MCV 93.9 fL (80.0-100.0); MEAN PLATELET VOLUME 9.6 fL (7.4-10.4); MONOCYTES 6.9 % (2-11); NEUTROPHILS 63.8 % (40-80); PLATELET COUNT 266 10x3/uL (130-400); RBC 4.75 10x6/uL (4.20-6.10); RDW 13.3 % (11.5-14.5); WBC 7.4 10x3/uL (4.8-10.8)
[2017-07-07 12:43] VITALS: BP 187/95; Ht 170.2 cm
[2017-07-07 12:51] LABS: POTASSIUM - SERUM 3.5 mmol/L (3.5-5.1)
[2017-07-07 15:25] LABS: ALBUMIN 3.7 g/dL (3.4-5.0); ALKALINE PHOSPHATASE 55 U/L (46-116); ALT (SGPT) 23 U/L (10-68); BILIRUBIN - TOTAL 0.42 mg/dL (0.2-1.3); CALC OSMOLALITY 295 mosm/kg (275-300); CALCIUM 8.8 mg/dL (8.5-10.1); CARBON DIOXIDE 25.5 mmol/L (21.0-32.0); CHLORIDE - SERUM 107 mmol/L (98-107); GLUCOSE 110 mg/dL (74-106); LIPASE 94 U/L (73-393); PROTEIN - SERUM 7.7 g/dL (6.4-8.2); SODIUM 147 mmol/L (136-145); UREA NITROGEN 20 mg/dL (7-18); eGFR NON AFRICAN AMERICAN 76 mL/min (90-120)
--- NOTE | 2017-07-07 16:33 | NUR ---
1515IV DC WITH CATHER TIP INTACT, LG SOFT BM CLEAN UP AND NH CALLED TO AUTOMATIC TOE LASTER PT DAUGHTER AT BEDSIDE
--- NOTE | 2017-07-13 12:46 | OP ---
PATIENT NAME: BRIGETTE SUE MEDICAL RECORD: [id number] :34 LOCATION:[facility] ADMISSION DATE: SURGEON: KRYS SHAH MD DATE OF OPERATION: 07/07/2017 PROCEDURE: EGD with biopsy. INDICATIONS: Mr. Sue is an 81-year-old gentleman with a history of Parkinson disease and Alzheimer dementia, who [place]. He had sustained a fall over the summer, had a periprosthetic femoral shaft fracture (he had post right hip intertrochanteric fracture 6 weeks prior). He underwent a nail exchange short to long, 02/23/2017. During his hospitalization, he had abrupt onset of vomiting with projectile coffee-ground emesis. He had a concomitant decrease in his hemoglobin and hematocrit requiring transfusion of 2 units of packed red blood cells. He had an EGD on 02/26/2017 that showed scattered shallow ulcers extending from the mid to distal esophagus; an ulcerative Jaimie-Junior tear with 2 receding nonhemorrhagic visible vessels that were present in the distal esophagus into the cardia of the stomach, small hiatal hernia and mild nodular gastritis. He has been on Protonix 40 mg twice a day. He presents for followup outpatient EGD. PREMEDICATIONS: Total IV anesthesia, propofol 160 mg. INSTRUMENT: Olympus video gastroscope. PROCEDURE AND FINDINGS: After receiving informed consent, Mr. Sue's posterior pharynx was anesthetized with Cetacaine spray. He was placed in left lateral decubitus position and sedated as per anesthesia. After achieving an adequate level of sedation, gastroscope was introduced per orally and advanced to the duodenum without difficulty. The esophageal ulcers had healed. There was no remaining evidence of a Jaimie-Junior tear and had completely healed. Small hiatal hernia was present. Gastric mucosa was notable for patchy erythema and erosions in the antrum and distal body of the stomach. Multiple antral biopsies were obtained to rule out Helicobacter pylori. No lesions were seen in the cardia, fundus or in the body of the stomach. Pylorus was patent and competent. Duodenal mucosa was without erythema or ulcers. In the second portion of duodenum, the ampulla was identified and appeared prominent and it was biopsied. Gastroscope was then withdrawn. Mr. Sue tolerated the procedure well, no immediate complications. ASSESSMENT: 1. Healed esophageal ulcers. 2. Healed Jaimie-Junior tear. 3. History of anemia. 4. Small hiatal hernia. 5. Erosive gastritis. 6. Prominent major ampulla. 7. Anemia, acute, secondary to gastrointestinal blood loss, resolved. Today's hemoglobin is 14.5. RECOMMENDATIONS: 1. Follow up histopathology. 2. Continue Protonix 40 mg p.o. b.i.d. indefinitely. 3. Check liver function tests (prominent ampulla). OPERATIVE REPORT [id number] BRIGETTE SUE TRANSINT:[id number] Voice Confirmation ID: [id number] DOCUMENT ID: [id number] KRYS SHAH MD at 1246 CC: GHANSHYAM WHITING MD [id number] DICTATION DATE: 07/07/17 1436 [address]CAR MOTORMAN: 07/07/[address] [facility] 07/07/17 [id number] [place] [address]
== END 2017-07-07 16:00 | disposition home or self-care (01) ==
LOC: D.OPS 11:15
PROVIDERS: Anesthesiology
DX: K22.10 Ulcer of esophagus without bleeding (principal); I10 Essential (primary) hypertension; K21.9 Gastro-esophageal reflux disease without esophagitis; K44.9 Diaphragmatic hernia without obstruction or gangrene; K29.70 Gastritis, unspecified, without bleeding; Z01.812 Encounter for preprocedural laboratory examination

== ENCOUNTER 2018-01-17 09:56 | Emergency (ER) | payer MEDICARE, BC ==
[~2018-01-17] VITALS: Ht 170.2 cm; Wt 69.1 kg
[2018-01-17 10:02] VITALS: Ht 170.2 cm; Wt 69.1 kg
[2018-01-17 12:18] LABS: BASOPHILS 0.1 % (0-2); EOSINOPHILS 0.3 % (0-7); HEMATOCRIT 40.9 % (42.0-54.0); HEMOGLOBIN 13.7 g/dL (13.5-17.5); IMMATURE GRANULOCYTES 0.1 % (0-5); LYMPHOCYTES 15.7 % (15-50); MCH 30.6 pg (26.0-34.0); MCHC 33.5 g/dL (31.0-37.0); MCV 91.5 fL (80.0-100.0); MEAN PLATELET VOLUME 9.6 fL (7.4-10.4); MONOCYTES 3.6 % (2-11); NEUTROPHILS 80.2 % (40-80); PLATELET COUNT 275 10x3/uL (130-400); RBC 4.47 10x6/uL (4.20-6.10); RDW 12.9 % (11.5-14.5); WBC 10.8 10x3/uL (4.8-10.8)
[2018-01-17 12:54] LABS: ALBUMIN 3.7 g/dL (3.4-5.0); ANION GAP 15.7 mmol/L (8-16); BILIRUBIN - TOTAL 0.51 mg/dL (0.2-1.3); CALCIUM 9.4 mg/dL (8.5-10.1); CARBON DIOXIDE 25.6 mmol/L (21.0-32.0); CREATININE - SERUM 1.2 mg/dL (0.6-1.3); POTASSIUM - SERUM 4.3 mmol/L (3.5-5.1); PROTEIN - SERUM 7.4 g/dL (6.4-8.2)
[2018-01-17 15:40] VITALS: BP 187/90
== END 2018-01-17 16:32 | disposition home or self-care (01) ==
LOC: D.ER 09:56
PROVIDERS: Emergency Medicine
DX: R05 Cough (principal); F03.90 Unspecified dementia, unspecified severity, without behavioral disturbance, psychotic disturbance, mood disturbance, and anxiety; G20 Parkinson's disease

== ENCOUNTER 2019-12-19 09:13 | Inpatient (IN) | payer MEDICARE, BC ==
[~2019-12-19] VITALS: Ht 170.2 cm; Wt 61.0 kg
[2019-12-19] VITALS (7 sets, daily range): BP systolic 100–161; BP diastolic 70–117; BMI 21.1
[2019-12-19 09:55] LABS: INR 1.18 (0.85-1.17); PROTIME 14.9 SECONDS (11.6-15.0)
[2019-12-19 09:56] LABS: APTT 38.3 SECONDS (22.8-39.4)
[2019-12-19 10:05] LABS: HEMATOCRIT 51.9 % (42.0-54.0); HEMOGLOBIN 16.2 g/dL (13.5-17.5); MCH 30.5 pg (26.0-34.0); MCHC 31.2 g/dL (31.0-37.0); MCV 97.7 fL (80.0-100.0); MEAN PLATELET VOLUME 9.9 fL (7.4-10.4); PLATELET COUNT 395 10x3/uL (130-400); RBC 5.31 10x6/uL (4.20-6.10); RDW 13.5 % (11.5-14.5); WBC 22.6 10x3/uL (4.8-10.8)
[2019-12-19 10:08] LABS: ALBUMIN 3.8 g/dL (3.4-5.0); ALKALINE PHOSPHATASE 50 U/L (30-120); ALT (SGPT) 11 U/L (10-68); BILIRUBIN - TOTAL 0.74 mg/dL (0.2-1.3); CALC OSMOLALITY 308 mosm/kg (275-300); CARBON DIOXIDE 21.5 mmol/L (21.0-32.0); CHLORIDE - SERUM 110 mmol/L (98-107); CREATININE - SERUM 1.6 mg/dL (0.6-1.3); LIPASE 54 U/L (73-393); POTASSIUM - SERUM 3.9 mmol/L (3.5-5.1); PROTEIN - SERUM 8.6 g/dL (6.4-8.2); SODIUM 150 mmol/L (136-145); TROPONIN-I < 0.017 ng/mL (0.000-0.060); UREA NITROGEN 30 mg/dL (7-18); eGFR NON AFRICAN AMERICAN 44 mL/min (90-120)
[2019-12-19 10:09] LABS: GLUCOSE 184 mg/dL (74-106)
[2019-12-19 11:50] LABS: NITRITE NEGATIVE (NEGATIVE); SPECIFIC GRAVITY 1.025 (1.005-1.020)
[2019-12-19 11:51] LABS: BILIRUBIN NEGATIVE (NEGATIVE); GLUCOSE 50 mg/dL (NEGATIVE); KETONE MODERATE mg/dL (NEGATIVE); UROBILINOGEN NORMAL (NORMAL)
[2019-12-19 11:52] LABS: AMORPHOUS SEDIMENT <1+ /lpf (NONE SEEN); BACTERIA FEW /hpf (NEGATIVE); EPITHELIAL CELLS 0-5 /hpf (0-5); GRANULAR CAST OCC /lpf (NONE SEEN); HYALINE CAST 0-5 /lpf (NONE SEEN); RED CELLS - URINE RARE /hpf (0-5); WHITE CELLS - URINE 0-5 /hpf (NEGATIVE)
[2019-12-19 13:56] LABS: LYMPHOCYTES 19 % (15-50); MONOCYTES 8 % (2-11); NEUTROPHILS 73 % (40-80); PLATELET ESTIMATE INCREASED; ROULEAUX OCC
--- NOTE | 2019-12-19 15:02 | NUR ---
10:53 NS 1000 MLCOMPLETE 11:45 ROCEPHIN 1 G COMPLETE 1443 LR 1000 ML COMPLETE 15:30 LEVAQUINE 750 MG INFUSING WITH PATIENT ON ADMISSION TRANSFER
[2019-12-20] VITALS: BP 107/72
--- NOTE | 2019-12-20 02:23 | NUR ---
PT RESTING IN BED. EYES CLOSED. NO SIGNS OF DSITRESS. BREATHING EVEN AND UNLABORED. IV SITE LT HAND DRESSING CLEAN DRY AND INTACT. NO SIGNS OF INFECTION OR INFULTRATION. 4LO2 NASAL CANNULA. ABD DISTENDED AND HARD. WILL CONTINUE PLAN OF CARE. CALL LIGHT IN REACH. BED LOWERED AND LOCKED. BED ALARM ON. FALL PRECAUTIONS IN PLACE.
--- NOTE | 2019-12-20 02:56 | NUR ---
I have reviewed this patient and I concur with the Shift Assessment completed by the Licensed Practical Nurse today this shift.
--- NOTE | 2019-12-20 03:17 | NUR ---
PT HAD ONE LARGE SOFT BROWN BM. CLEANED PT UP. PT TOLERATED WELL. FALL PRECAUTIONS BACK IN PLACE. BED LOWERED AND LOCKED. BED RAILS UPX3. BED ALARM ON.
[2019-12-20 04:00] VITALS: BP 133/78
[2019-12-20 05:35] LABS: BASOPHILS 0.1 % (0-2); EOSINOPHILS 0 % (0-7); IMMATURE GRANULOCYTES 0.3 % (0-5); MCH 30.4 pg (26.0-34.0); MCHC 31.4 g/dL (31.0-37.0); MCV 96.6 fL (80.0-100.0); MONOCYTES 4.9 % (2-11); NEUTROPHILS 83.7 % (40-80); PLATELET COUNT 337 10x3/uL (130-400); RDW 13.6 % (11.5-14.5); WBC 18.1 10x3/uL (4.8-10.8)
[2019-12-20 06:05] LABS: BILIRUBIN - TOTAL 0.81 mg/dL (0.2-1.3); CALCIUM 8.1 mg/dL (8.5-10.1); CARBON DIOXIDE 23.9 mmol/L (21.0-32.0); CREATININE - SERUM 1.6 mg/dL (0.6-1.3); PROTEIN - SERUM 6.8 g/dL (6.4-8.2)
[2019-12-20 06:08] LABS: ALBUMIN 2.7 g/dL (3.4-5.0); ANION GAP 13.4 mmol/L (8-16); POTASSIUM - SERUM 3.3 mmol/L (3.5-5.1)
[2019-12-20 06:55] LABS: HEMATOCRIT 40.1 % (42.0-54.0); HEMOGLOBIN 12.6 g/dL (13.5-17.5); RBC 4.15 10x6/uL (4.20-6.10)
--- NOTE | 2019-12-20 07:12 | NUR ---
PT LYING ON LEFT SIDE, TELEMETRY IN PLACE, IV TO LEFT HAND STILL IN PLACE TAPED SECURELY, PM NURSE REPORTS SOME BLEEDING, PT STILL VERY CONFUSED AND NOT SPEAKING, DID NOT GIVE PO MEDS FOR FEAR PT MAY ASPIRATE, CL IN ERACH, BED IN LOWEST POSITION. PT HAS 2 SPOTS ON REAR END THAT ARE RED BUT BLANCHABLE, WILL CONTINUE TO MONITOR AND KEEP PT TURNED. O2 AT 4L PT AT 95% NO S/SX OF DISTRESS, CONTINUE WITH PLAN OF CARE
[2019-12-20 09:00] VITALS: BP 94/76
--- NOTE | 2019-12-20 09:56 | NUR ---
TURNED PT TO LEFT SIDE, PT VERY RESISTANT, IV IN LEFT HAND INTACT DRESSING HAS SOME DRIED BLOOD ON IT WILL MONITOR IV SITE, PT HAD SM BM AND URINATED, CHANGED PT PADS ON BED, O2 AT 4L, LAST BAG OF K+ HANGING NO S/SX OF DISTRESS, CL IN REACH, CONTINUE WITH PLAN OF CARE
[2019-12-20 12:22] VITALS: Ht 170.2 cm; Wt 61.0 kg
--- NOTE | 2019-12-20 12:42 | NUR ---
TURNED PT TO RT SIDE AND CHANGED PADS UNDERNEATH PT. PT HAD ANOTHER BM AND URINATED, NO S/SX OF DISTRESS, SPOKE TO PT DAUGHTER AND GAVE ALL INFORMATION ASKED FOR. CL IN REACH CONTINUE WITH PLAN OF CARE
--- NOTE | 2019-12-20 13:01 | NUR ---
I have reviewed this patient and I concur with the Shift Assessment completed by the Licensed Practical Nurse today this shift.
[2019-12-20 13:20] VITALS: BP 126/83
--- NOTE | 2019-12-20 15:15 | NUR ---
Admitted from [place]. Pt is confused. He is turned on his right side, propped by pillows. He's on a turn q 2 hour schedule. Coccyx is blanchable red. Wound care will continue monitoring.
--- NOTE | 2019-12-20 15:58 | NUR ---
TURNED PT BACK TO ONTO LEFT SIDE, PT HAD ANOTHER BM AND WET PAD, IV IN LEFT WRIST CAME OUT, RESITED PT IV TO LEFT FA X 2 ATTEMPTS, PT K+ IS STILL 3.3, STARTED ANOTHER BAG OF K+ 10MEQ RIDERS WILL HANG 3 MORE AND ORDER ANOTHER REDRAW. PT DAUGHTER CAME IN AND IS AT BEDSIDE, NO OTHER NEEDS VOICED, PT DOES NOT LOOK TO BE IN DISTRESS, CONTINUE WITH PLAN OF CARE
[2019-12-20 16:00] VITALS: BP 125/77
--- NOTE | 2019-12-20 16:28 | NUR ---
CALLED [facility] IN REGARDS TO WHEN MR LIU LAST ATE. PER MIRANDA MENON HE ASKED THE OTHER NURSES THAT WERE WITH MR LIU YESTERDAY BEFORE COMING TO HOSPITAL AND THEY STATED THEY WERE SURE MR LIU ATE DAY BEFORE YESTERDAY MAKING IT TUESDAY THE . WILL RELAY MESSAGE TO PT DAUGHTER AT BEDSIDE
[2019-12-20 20:00] VITALS: BP 150/92
--- NOTE | 2019-12-20 20:00 | NUR ---
PATIENT RESTING IN BED WITH EYES CLOSED. NO S/S OF ACUTE DISTRESS. NO C/O AT THIS TIME. PATIENT IS NONVERBAL AND WAKES TO VOICE BUT THEN FALLS RIGHT BACK TO SLEEP. PATIENT IS ON 7L HIGH FLOW NASAL CANNULA. PATIENT HAS LEFT FOREARM D5 1/2 NORMAL SALINE @ 75 ML/HR. IV IS PATENT WITHOUT REDNESS, SWELLING, OR TENDERNESS. PATIENT IS ON TELEMETRY: 67 SINUS RYTHM. PATIENT IS INCONTINENT OF BOWEL AND BLADDER. CALL LIGHT WITHIN REACH. WILL CONTINUE TO MONITOR
[2019-12-21 04:00] VITALS: BP 135/72
--- NOTE | 2019-12-21 04:20 | NUR ---
I have reviewed this patient and I concur with the Shift Assessment completed by the Licensed Practical Nurse today this shift.
[2019-12-21 06:41] LABS: BASOPHILS 0.1 % (0-2); EOSINOPHILS 0.1 % (0-7); HEMOGLOBIN 11.2 g/dL (13.5-17.5); IMMATURE GRANULOCYTES 0.1 % (0-5); LYMPHOCYTES 12.2 % (15-50); MCH 30.7 pg (26.0-34.0); MCV 95.9 fL (80.0-100.0); MONOCYTES 5.7 % (2-11); NEUTROPHILS 81.8 % (40-80); PLATELET COUNT 273 10x3/uL (130-400); RBC 3.65 10x6/uL (4.20-6.10); RDW 13.4 % (11.5-14.5)
[2019-12-21 06:44] LABS: WBC 13.5 10x3/uL (4.8-10.8)
[2019-12-21 06:49] LABS: ANION GAP 11.5 mmol/L (8-16); CALCIUM 7.6 mg/dL (8.5-10.1); CARBON DIOXIDE 21.1 mmol/L (21.0-32.0); CREATININE - SERUM 1.3 mg/dL (0.6-1.3); MAGNESIUM - SERUM 1.9 mg/dL (1.8-2.4); POTASSIUM - SERUM 3.6 mmol/L (3.5-5.1)
[2019-12-21 08:00] VITALS: BP 178/99
--- NOTE | 2019-12-21 08:00 | NUR ---
ASSESSMENT PER FLOW SHEET. PATIENT IS WITHOUT DISTRESS.HE IS NON VERBAL,BUT MOVES UPPER BODY WHEN SPOKE TO. HE KEEPS EYES CLOSED ALL THE TIME. AARON MAT ON AND DOOR OPEN.
[2019-12-21 12:00] VITALS: BP 173/98
[2019-12-21 16:00] VITALS: BP 175/98
--- NOTE | 2019-12-21 18:55 | NUR ---
PATIENT REMAINS WITHOUT NEEDS,WITHOUT CHANGE. CONT PLAN OF CARE
[2019-12-21 20:00] VITALS: BP 160/90
[2019-12-22] VITALS: BP 164/87
[2019-12-22 04:00] VITALS: BP 102/56
[2019-12-22 06:23] LABS: BASOPHILS 0.1 % (0-2); EOSINOPHILS 0.3 % (0-7); HEMATOCRIT 33.8 % (42.0-54.0); HEMOGLOBIN 10.7 g/dL (13.5-17.5); IMMATURE GRANULOCYTES 0.3 % (0-5); LYMPHOCYTES 12.4 % (15-50); MCH 30.1 pg (26.0-34.0); MCHC 31.7 g/dL (31.0-37.0); MCV 94.9 fL (80.0-100.0); MEAN PLATELET VOLUME 10.2 fL (7.4-10.4); MONOCYTES 6.3 % (2-11); NEUTROPHILS 80.6 % (40-80); PLATELET COUNT 284 10x3/uL (130-400); RBC 3.56 10x6/uL (4.20-6.10); WBC 10.2 10x3/uL (4.8-10.8)
--- NOTE | 2019-12-22 06:38 | NUR ---
I have reviewed this patient and I concur with the Shift Assessment completed by the Licensed Practical Nurse today this shift.
[2019-12-22 06:53] LABS: ANION GAP 11.3 mmol/L (8-16); CARBON DIOXIDE 24.1 mmol/L (21.0-32.0); CREATININE - SERUM 1.1 mg/dL (0.6-1.3); POTASSIUM - SERUM 3.4 mmol/L (3.5-5.1)
[2019-12-22 08:00] VITALS: BP 145/82
--- NOTE | 2019-12-22 08:00 | NUR ---
AROUSES TO VERBAL STIMULI WITH CONFUSION NOTED. INCONTINENT OF BOWEL AND BLADDER.IVF INFUSING AT PRESCRIBED RATE WITH REPLACEMENT OF ELECTROLYTES. PATIENT CONTINUES TO PULL OXYGEN N/C OFF AT TIMES. PATINET REPOSITIONED FOR COMFORTR WITH PERICARE DONE WITH EACH INCONT. EPISODE. O2 4L N/C. FALL PRECAUTIONS IN PLACE. LUNGS DIMINISHED X4 ANTERIOR. TELEMETRY INTACT
--- NOTE | 2019-12-22 12:53 | NUR ---
IV INFILTRATED TO LEFT FOREARM WITH WARM COMPRESS APPLIED AND RESTARTED WITH 22G TO RT. F/A. CHANGED AND REPOSITIONED FOR COMFORT. IVF INFUSING AT PRESCRIBED RATE.
[2019-12-22 15:52] VITALS: BP 154/90
--- NOTE | 2019-12-22 19:00 | NUR ---
PATIENT LYING DOWN IN BED. ALERT AND ORIENTED X0. NO SIGNS OF ACUTE DISTRESS NOTED AT THIS TIME. L FA IV, PRO-CALL @75 AND NS @10, NO REDNESS OR SWELLING. FALL PRECAUTIONS IN PLACE. BED RAILS X2, BEDSIDE TABLE AND CALL LIGH WITHIN REACH.
[2019-12-22 20:00] VITALS: BP 120/78
[2019-12-23 00:10] VITALS: BP 118/68
[2019-12-23 05:16] VITALS: BP 121/70
[2019-12-23 07:31] LABS: BASOPHILS 0.1 % (0-2); EOSINOPHILS 1.3 % (0-7); HEMATOCRIT 35.4 % (42.0-54.0); HEMOGLOBIN 11.2 g/dL (13.5-17.5); IMMATURE GRANULOCYTES 0.5 % (0-5); LYMPHOCYTES 11.2 % (15-50); MCH 29.9 pg (26.0-34.0); MCHC 31.6 g/dL (31.0-37.0); MCV 94.4 fL (80.0-100.0); MONOCYTES 7.3 % (2-11); NEUTROPHILS 79.6 % (40-80); PLATELET COUNT 262 10x3/uL (130-400); RBC 3.75 10x6/uL (4.20-6.10); RDW 12.8 % (11.5-14.5); WBC 11.1 10x3/uL (4.8-10.8)
[2019-12-23 07:47] LABS: CALC OSMOLALITY 275 mosm/kg (275-300); CALCIUM 7.8 mg/dL (8.5-10.1); CARBON DIOXIDE 23.5 mmol/L (21.0-32.0); CHLORIDE - SERUM 105 mmol/L (98-107); GLUCOSE 107 mg/dL (74-106); POTASSIUM - SERUM 3.7 mmol/L (3.5-5.1); SODIUM 137 mmol/L (136-145); UREA NITROGEN 17 mg/dL (7-18); eGFR NON AFRICAN AMERICAN 75 mL/min (90-120)
[2019-12-23 08:00] VITALS: BP 144/90
--- NOTE | 2019-12-23 09:00 | NUR ---
PATIENT AROUSES WITH STIMULATION. O2 5L N/C WITH BREATH SOUNDS DIMINISHED X4 ANTERIOR.UNABLE TO FOLLOW COMMANDS DUE TO DEMENTIA. TELEMETRY INTACT. DONTRACTURES NOTED TO BLE WITH NO PERIPHERAL EDEMA NOTED. CHANGED AND REPOSITIONED FOR COMFORT. IVF INFUSING TO LEFT FOREARM W/O ANY S/S OF INFECTION/INFILTRATION. FALL PRECAUTIONS IN PLACE
[2019-12-23 12:00] VITALS: BP 156/94
[2019-12-23 16:00] VITALS: BP 149/98
[2019-12-23 19:40] VITALS: BP 174/100
[2019-12-24 00:51] VITALS: BP 180/99
--- NOTE | 2019-12-24 01:11 | NUR ---
RESTING IN BED CONFUSED RESTING IN BED. TRUNED Q 2 HR CHECKEDD OFTEN FOR NEEDS AND SAFETY.
[2019-12-24 04:00] VITALS: BP 179/98
[2019-12-24 06:14] LABS: BASOPHILS 0 % (0-2); EOSINOPHILS 1.4 % (0-7); HEMATOCRIT 35.6 % (42.0-54.0); HEMOGLOBIN 11.8 g/dL (13.5-17.5); IMMATURE GRANULOCYTES 0.6 % (0-5); LYMPHOCYTES 11.3 % (15-50); MCH 31.1 pg (26.0-34.0); MCHC 33.1 g/dL (31.0-37.0); MCV 93.9 fL (80.0-100.0); MEAN PLATELET VOLUME 10.3 fL (7.4-10.4); NEUTROPHILS 78.7 % (40-80); PLATELET COUNT 313 10x3/uL (130-400); RBC 3.79 10x6/uL (4.20-6.10); RDW 12.8 % (11.5-14.5); WBC 10.2 10x3/uL (4.8-10.8)
[2019-12-24 06:27] LABS: CALC OSMOLALITY 279 mosm/kg (275-300); CALCIUM 8.6 mg/dL (8.5-10.1); CARBON DIOXIDE 25.3 mmol/L (21.0-32.0); CHLORIDE - SERUM 105 mmol/L (98-107); GLUCOSE 116 mg/dL (74-106); MAGNESIUM - SERUM 2.1 mg/dL (1.8-2.4); SODIUM 139 mmol/L (136-145); UREA NITROGEN 16 mg/dL (7-18); eGFR NON AFRICAN AMERICAN 75 mL/min (90-120)
[2019-12-24 09:07] VITALS: BP 170/92
--- NOTE | 2019-12-24 09:47 | NUR ---
PT LYING IN BED EASILY STARTLED, NC ON 5L HF, PT LEGS DRAWN UP AND WHEN TRYING TO STRAIGHTEN OUT PT DRAWS LEGS BACK UP. IV IN LEFT FA PATENT, CL IN REACH, TURNED PT TO LEFT SIDE, CONTINUE WITH PLAN OF CARE
[2019-12-24 12:26] VITALS: BP 168/97
[2019-12-24 17:10] VITALS: BP 114/80
--- NOTE | 2019-12-24 18:45 | NUR ---
I have reviewed this patient and I concur with the Shift Assessment completed by the Licensed Practical Nurse today this shift.
[2019-12-24 20:45] VITALS: BP 127/85
[2019-12-25 05:27] VITALS: BP 127/76
[2019-12-25 06:22] LABS: BASOPHILS 0.1 % (0-2); EOSINOPHILS 2.3 % (0-7); HEMATOCRIT 35.4 % (42.0-54.0); HEMOGLOBIN 11.6 g/dL (13.5-17.5); IMMATURE GRANULOCYTES 0.6 % (0-5); LYMPHOCYTES 13.7 % (15-50); MCH 30.6 pg (26.0-34.0); MCHC 32.8 g/dL (31.0-37.0); MCV 93.4 fL (80.0-100.0); MEAN PLATELET VOLUME 9.9 fL (7.4-10.4); MONOCYTES 8.4 % (2-11); NEUTROPHILS 74.9 % (40-80); PLATELET COUNT 320 10x3/uL (130-400); RBC 3.79 10x6/uL (4.20-6.10); RDW 12.9 % (11.5-14.5); WBC 10.7 10x3/uL (4.8-10.8)
[2019-12-25 07:15] LABS: ALBUMIN 2.4 g/dL (3.4-5.0); ANION GAP 13.3 mmol/L (8-16); BILIRUBIN - TOTAL 0.34 mg/dL (0.2-1.3); CALCIUM 8.4 mg/dL (8.5-10.1); CARBON DIOXIDE 24.4 mmol/L (21.0-32.0); CREATININE - SERUM 1.1 mg/dL (0.6-1.3); MAGNESIUM - SERUM 2.2 mg/dL (1.8-2.4); PHOSPHOROUS 2.6 mg/dL (2.5-4.9); POTASSIUM - SERUM 3.7 mmol/L (3.5-5.1); PROTEIN - SERUM 7.1 g/dL (6.4-8.2)
[2019-12-25 08:08] VITALS: BP 159/98
--- NOTE | 2019-12-25 12:27 | NUR ---
I have reviewed this patient and I concur with the Shift Assessment completed by the Licensed Practical Nurse today this shift.
[2019-12-25 12:29] VITALS: BP 171/100
[2019-12-25 17:47] VITALS: BP 150/89
[2019-12-25 20:00] VITALS: BP 133/84
--- NOTE | 2019-12-25 23:31 | NUR ---
I have reviewed this patient and I concur with the Shift Assessment completed by the Licensed Practical Nurse today this shift.
[2019-12-26 04:00] VITALS: BP 176/109
[2019-12-26 07:22] LABS: BASOPHILS 0.1 % (0-2); EOSINOPHILS 0.6 % (0-7); HEMATOCRIT 36.2 % (42.0-54.0); HEMOGLOBIN 11.8 g/dL (13.5-17.5); IMMATURE GRANULOCYTES 0.5 % (0-5); LYMPHOCYTES 15.8 % (15-50); MCH 30.1 pg (26.0-34.0); MCHC 32.6 g/dL (31.0-37.0); MCV 92.3 fL (80.0-100.0); MEAN PLATELET VOLUME 10.2 fL (7.4-10.4); MONOCYTES 9.9 % (2-11); NEUTROPHILS 73.1 % (40-80); PLATELET COUNT 366 10x3/uL (130-400); RBC 3.92 10x6/uL (4.20-6.10); RDW 12.8 % (11.5-14.5); WBC 10.9 10x3/uL (4.8-10.8)
[2019-12-26 07:49] LABS: ALBUMIN 2.4 g/dL (3.4-5.0); ALKALINE PHOSPHATASE 29 U/L (30-120); ALT (SGPT) 12 U/L (10-68); BILIRUBIN - TOTAL 0.39 mg/dL (0.2-1.3); CALC OSMOLALITY 274 mosm/kg (275-300); CALCIUM 8.7 mg/dL (8.5-10.1); CARBON DIOXIDE 23.2 mmol/L (21.0-32.0); CHLORIDE - SERUM 104 mmol/L (98-107); GLUCOSE 123 mg/dL (74-106); MAGNESIUM - SERUM 2.2 mg/dL (1.8-2.4); PHOSPHOROUS 2.6 mg/dL (2.5-4.9); POTASSIUM - SERUM 4.1 mmol/L (3.5-5.1); PROTEIN - SERUM 7.2 g/dL (6.4-8.2); SODIUM 136 mmol/L (136-145); UREA NITROGEN 18 mg/dL (7-18); eGFR NON AFRICAN AMERICAN 75 mL/min (90-120)
[2019-12-26 08:00] VITALS: BP 149/106
--- NOTE | 2019-12-26 09:08 | NUR ---
RESTING IN BED, NO DISTRESS NOTED, TURNED PER STAFF, NPO, CONT TO MONITOR TELE AND VITALS
--- NOTE | 2019-12-26 13:31 | NUR ---
PT TO START HOSPICE TODAY, ORDERS REC. WILL DC THIS ACCT
--- NOTE | 2019-12-27 08:17 | EC ---
PATIENT:BRIGETTE LIU DATE OF SERVICE: 12/19/19 SEX: M MEDICAL RECORD: [id number] DATE OF : 33 LOCATION:[facility] AGE OF PATIENT: 84 ADMISSION DATE: 12/19/19 REFERRING PHYSICIAN: INTERPRETING PHYSICIAN: RAUL PETERSON MD ECHOCARDIOGRAM REPORT ECHO CHARGES 4 ECHO COMPLETE Date: 12/20/19 CLINICAL DIAGNOSIS: H/O HTN ECHOCARDIOGRAPHIC MEASUREMENTS (adult normal given) AC root (d.<3.7cm) 3.1 cm LV Septum d (<1.2 cm> 1.5 cm Valve Excursion 1.0 cm LV Septum (systole) 1.9 cm Left Atria (s.<4.0cm> 3.8 cm LVPW d(<1.2cm) 1.3 cm RV (d.<2.3cm) 1.9 cm LVPW (sytole) 1.9 cm LV diastole(<5.6CM) 5.5 cm MV E-F(>70mm/sec) cm LV systole 3.9 cm LVOT Diameter 1.7 cm MV exc.(>10mm) cm Est.ejection fraction (50-75%) % DOPPLER: LVIT cm/sec A 95.0 cm/sec E 55.0 cm/sec LA cm/sec RVSP 36.4 mmHg LVOT 124 cm/sec AOP1/2T m/s Asc. Ao 182 cm/sec RVOT 144 cm/sec RA cm/sec PA 101 cm/sec AV Gradient Peak 13.2 mmHg AV Mean 8.4 mmHg AV Area 1.7 cm MV Gradient Peak 3.9 mmHg MV Mean 1.6 mmHg MV Area cm COMMENTS: Litigation Partner: Edwin DOBBSOE Decontamination Technician: 3 Dr. Vasquez TAPE# PACS Pericardial Effusion N DATE OF SERVICE: Adequate 2D, color flow imaging, spectral Doppler, and M-Mode. LVH is present. LV internal dimensions are normal. Wall motion is normal. EF is greater than or equal to 55%. Aortic valve is tricuspid. No evidence of stenosis by Doppler interrogation. Left atrium is normal at 3.8 cm. Mitral valve shows no prolapse. Trace MR. Right-sided chambers are grossly normal. Trace TR. ECHOCARDIOGRAM REPORT [id number] BRIGETTE LIU TRANSINT:[id number] Voice Confirmation ID: [id number] DOCUMENT ID: [id number] RAUL PETERSON MD at 0817 CC: [id number] DICTATION DATE: 12/20/19 152 COMPUTER METEOROLOGIST: 12/20/19 1733 DIS IN 12/26/19 [id number] [place] [address]
== END 2019-12-26 13:32 | disposition hospice, inpatient (51) | DRG 871 ==
LOC: D.ER 09:13 → D.MS 13:28
PROVIDERS: Family Medicine; Internal Medicine Pulmonary Disease; ADMIT Internal Medicine Nephrology; ATTEND Internal Medicine Nephrology
DX: A41.9 Sepsis, unspecified organism (principal); J69.0 Pneumonitis due to inhalation of food and vomit; G93.41 Metabolic encephalopathy; R40.2344 Coma scale, best motor response, flexion withdrawal, 24 hours or more after hospital admission; R40.2124 Coma scale, eyes open, to pain, 24 hours or more after hospital admission; R40.2224 Coma scale, best verbal response, incomprehensible words, 24 hours or more after hospital admission; E87.0 Hyperosmolality and hypernatremia; N17.9 Acute kidney failure, unspecified; E44.0 Moderate protein-calorie malnutrition; K92.2 Gastrointestinal hemorrhage, unspecified; R53.81 Other malaise; G20 Parkinson's disease; F02.80 Dementia in other diseases classified elsewhere, unspecified severity, without behavioral disturbance, psychotic disturbance, mood disturbance, and anxiety; G30.9 Alzheimer's disease, unspecified; M19.90 Unspecified osteoarthritis, unspecified site; K56.41 Fecal impaction; F32.9 Major depressive disorder, single episode, unspecified; R32 Unspecified urinary incontinence; Z66 Do not resuscitate

== ENCOUNTER 2019-12-26 15:04 | Inpatient (IN) | payer OTHER ==
[~2019-12-26] VITALS: Ht 170.2 cm; Wt 61.4 kg
--- NOTE | 2019-12-26 16:00 | NUR ---
PT CHANGED TO HOSPICE STATUS, RESTING IN BED, NO DISTRESS NOTED, O2 PER NC, TURNED PER STAFF, INCONT B&B, NS PER RIGHT IV, WILL START RADIATION TECHNICIAN
[2019-12-27] VITALS: BP 153/105
--- NOTE | 2019-12-27 02:12 | NUR ---
I have reviewed this patient and I concur with the Shift Assessment completed by the Licensed Practical Nurse today this shift.
[2019-12-27 03:45] VITALS: Ht 170.2 cm; Wt 61.4 kg
--- NOTE | 2019-12-27 08:00 | NUR ---
PT RESTING IN BED WITH EYES CLOSED, BREATHING SHALLOW AND UNEVEN. PT HAS O2 AT 2L THAT HE KEEPS PULLING OFF. .5 MORPHINE CONTINUOUS DIRECTOR OF HOSPITALITY. BED IN LOWEST POSITION, BED RAILS X2. WILL CONTINUE TO MONITOR.
[2019-12-27 08:48] VITALS: BP 172/98
--- NOTE | 2019-12-27 10:30 | NUR ---
SPOKE WITH PT DAUGTHER IN RELATION TO PATIENTS CURRENT STATUS. DAUGHTER, WHO IS THE POA, REQUESTED THAT IF HE PULLS HIS O2 OFF, SHE WANTS IT LEFT OFF. DENIES ANY OTHER NEEDS AND HAS NO OTHER QUESTIONS. WILL CONTINUE TO MONITOR.
[2019-12-27 13:07] VITALS: BP 139/113
--- NOTE | 2019-12-27 14:08 | NUR ---
PT RESTING IN BED WITH EYES CLOSED. BREAHTING IS SHALLOW AND UNEVEN. SEEMS TO BE COMFORTABLE. WILL CONTINUE TO MONITOR.
[2019-12-27 16:43] VITALS: BP 145/85
--- NOTE | 2019-12-27 16:57 | MORECARE ---
CASE MANAGEMENT DISCHARGE SUMMARY PATIENT: BRIGETTE LIU UNIT: [id number] ADM DATE: 12/26/19 AGE: 84 : 34 SEX: M ROOM/BED: D.2224 AUTHOR: WHITNEY HEIN PHYSICIAN: REFERRING PHYSICIAN: PHILIP BAKER MD DATE OF SERVICE: 12/27/19 Discharge Plan Patient Name: BRIGETTE LIU Facility: [facility]:[place] : 1935 Planned Disposition: Anticipated Discharge Date: Discharge Date: Expected LOS: Initial Reviewer: [email or web address] Initial Review Date: 12/26/2019 Generated: 12/27/19 5:56 pm Patient Name: BRIGETTE LIU Page [id number] at 1657 All edits/amendments must be made on the electronic document DICTATION DATE: 12/27/191656 HAND BULLDOZER: SHAILA 12/27/191656 RPT#: [id number] DC DATE: STATUS: ADM IN [facility] [address] [place] [address] END OF REPORT
--- NOTE | 2019-12-27 18:23 | NUR ---
PT RESTING IN BED ON SIDE. PT HAS A SMALL BLISTER FORMING ON THE RIGHT HIP, PLACED A MEPLEX ON IT. RESTING COMFORTABLY. BREATHING IS SHALLOW AND UNLABORED. WILL CONTINUE TO MONITOR.
[2019-12-27 20:00] VITALS: BP 164/75
--- NOTE | 2019-12-28 01:34 | NUR ---
PLACED 18FR ELAINE. ATTEMPTS X1. PT TOLERATED WELL. HOSPICE COMFORT CARE REASON FOR ELAINE. WILL CONTINUE HOSPICE PLAN OF CARE. CALL LIGHT IN REACH. BED LOWERED AND LOCKED. BED RAILS UPX2.
--- NOTE | 2019-12-28 07:30 | NUR ---
PT RESTING WITH EYES CLOSED ON SIDE. BREATHING IS SHALLOW BUT APPEARS UNLABORED. NO S/S OF DISTRESS NOTED. WILL CONTINUE TO MONITOR.
[2019-12-28 08:00] VITALS: BP 107/82
--- NOTE | 2019-12-28 11:00 | NUR ---
PT RESTING IN BED WITH EYES CLOSED ON SIDE. BREATHING STILL SHALLOW BUT UNLABORED. PT IS A TURN Q2. HAS MEPILEX TO THE RIGHT HIP FOR SORE.
--- NOTE | 2019-12-28 14:57 | NUR ---
JUST SPOKE WITH DAUGHTER. INFORMED HER OF PT MEPILEX ON RIGHT HIP. STATES HER SISTER WILL BE COMING TUESDAY TO VISIT HIM. IS GOING TO CONTACT GALE IN REFERENCE TO FUTURE PLAN FOR MR. LIU. PT IS RESTING COMFORTABLY IN BED WITH EYES CLOSED. BREATHING SHALLOW AND UNLABORED. DAUGHTER DENIES ANY QUESTIONS ON NEEDS. WILL CONTINUE TO MONITOR.
--- NOTE | 2019-12-28 15:15 | NUR ---
ASSISTED WITH TURNING EARLIER. PATIENT IS WITHOUT SIGNNS OF DISTRESS.DOOR OPEN
--- NOTE | 2019-12-28 16:07 | NUR ---
PT SUPINE IN BED WITH EYES OPEN. SITUATED PT GOWN AND COVERS, REPLACED O2 TUBING CORRECTLY ON FACE. RESTING COMFORTABLY. REASSURED PT THAT HIS DAUGHTER HAD BEEN BY TODAY AND THAT HE IS BEING TAKEN WELL CARE OF. WILL CONTINUE TO MONITOR.
--- NOTE | 2019-12-28 16:35 | MORECARE ---
CASE MANAGEMENT DISCHARGE SUMMARY PATIENT: BRIGETTE LIU UNIT: [id number] ADM DATE: 12/26/19 AGE: 84 : 34 SEX: M ROOM/BED: D.2224 AUTHOR: WHITNEY HEIN PHYSICIAN: REFERRING PHYSICIAN: PHILIP BAKER MD DATE OF SERVICE: 12/28/19 Discharge Plan Patient Name: BRIGETTE LIU Facility: [facility]:[place] : 1935 Planned Disposition: Anticipated Discharge Date: Discharge Date: Expected LOS: Initial Reviewer: [email or web address] Initial Review Date: 12/26/2019 Generated: 12/28/19 5:34 pm Last DP export: 12/27/19 3:57 p Patient Name: BRIGETTE LIU Page [phone] at 1635 All edits/amendments must be made on the electronic document DICTATION DATE: 12/28/19 1634 WORM PICKER: SHAILA 12/28/19 1634 RPT#: [id number] DC DATE: STATUS: ADM IN [facility] [address] [place] [address] END OF REPORT
--- NOTE | 2019-12-28 19:00 | NUR ---
BEDSIDE REPORT RECEIVED AND CARE OF PT ASSUMED. PT LYING IN SUPINE POSITION WITH EYES CLOSED AND EASY RESPIRATIONS. ELAINE CATHETER DRAINING TO GRAVITY WITH CONCENTRATED URINE IN COLLECTION BAG. IV TO RIGHT FA PATENT WITH NS INFUSING AT KVO. GASKET NOTCHER WITH MORPHINE INFUSING AT 0.5MG CONTINUOUSLY.
[2019-12-28 20:00] VITALS: BP 149/82
--- NOTE | 2019-12-28 21:40 | NUR ---
PT TURNED TO RIGHT SIDE PADDED WITH PILLOWS.
--- NOTE | 2019-12-28 22:39 | NUR ---
PT BATHED AND ALL LINENS AND GOWN CHANGED. REMOVED DRESSING ON RIGHT HIP, WITH 1/5" X 2" FLUID FILLED BLISTER UNDER DRESSING. CLEANSED AND REPLACED WITH MEPILEX HEART DRESSING. TURNED PT TO RIGHT SIDE AND PADDED ALL AROUND AND BETWEEN KNEES WITH PILLOWS FOR COMFORT. SIDE RAILS UP X3 FOR SAFETY.
--- NOTE | 2019-12-29 03:12 | NUR ---
REPLACED MORPHINE IN HOUSING INSPECTOR PUMP. PT RESTING QUIETLY AT THIS TIME WITH EYES CLOSED AND EASY RESPIRATIONS.
[2019-12-29 08:34] VITALS: BP 112/74
--- NOTE | 2019-12-29 10:46 | NUR ---
PT RESTING. BREATH SOUNDS CLEAR BILAT, 5L O2 PER NC. IV TO RIGHT FOREARM, PATENT, DRESSING CDI. MORPHINE DIABETES TRAINER, CONTINUOUS. BED LOW, CALL LIGHT IN REACH. NO OTHER NEEDS AT THIS TIME.
--- NOTE | 2019-12-29 19:00 | NUR ---
BEDSIDE REPORT RECEIVED AND CARE OF PT ASSUMED. PT LYING IN SUPINE POSITION WITH EYES CLOSED AND EASY RESPIRATIONS. IV TO RIGHT FA PATENT WITH NS INFUSING AT KVO, AND A CHARGE MASTER COORDINATOR WITH MORPHINE INFUSING 0.5 MG/HR CONTINUOUSLY. ELAINE CATHETER DRAINING TO GRAVITY WITH CONCENTRATED URINE IN COLLECITON BAG. WILL MONITOR FOR NEEDS.
[2019-12-29 20:00] VITALS: BP 130/79
--- NOTE | 2019-12-29 22:15 | NUR ---
PT BATHED AND ALL LINENS AND GOWN CHANGED. POSITIONED ONTO LEFT SIDE PADDED WITH PILLOWS FOR COMFORT. WILL CONTINUE TO MONITOR CLOSELY.
[2019-12-30 08:00] VITALS: BP 170/99
--- NOTE | 2019-12-30 19:00 | NUR ---
BEDSIDE REPORT RECEIVED AND CARE OF PT ASSUMED. PT LYING IN LOW GAYTAN'S POSITION WITH EYES CLOSED AND EASY RESPIRATIONS. ELAINE CATHETER DRAINING TO GRAVITY WITH CONCENTRATED URINE IN COLLECTION BAG. WILL MONITOR FOR NEEDS.
[2019-12-30 21:01] VITALS: BP 154/87
--- NOTE | 2019-12-31 07:45 | NUR ---
PT RESTING IN BED WITH EYES CLOSED. PT OPENS EYES TO NAME BEING CALLED. O2 @ 5L HIFLO IN PLACE. IV TO RIGHT FOREARM WITH NS @ 30ML/HR INFUSING VIA PUMP. SITE WITHOUT REDNESS OR EDEMA. MORPHINE BAR HOST/HOSTESS INTACT. F/C PATENT TO GRAVITY AND DRAINING. DOES NOT PRESENT WITH PAIN, NO MOANING, NO GRIMACING. PT REPOSITIONED AT THIS TIME TO RIGHT SIDE. CL WITHIN REACH. CONTINUE POC
[2019-12-31 08:16] VITALS: BP 132/84
--- NOTE | 2019-12-31 19:00 | NUR ---
BEDSIDE REPORT RECEIVED AND CARE OF PT ASSUMED. PT LYING IN LOW GAYTAN'S POSITION WITH EYES CLOSED AND EASRY RESPIRATIONS. IV TO RIGHT FA PATENT WITH NS INFUSING AT 30 ML/HR, AND UPHOLSTERY CLEANER WITH MORPHINE INFUSING AT 0.5 ML/HR. ELAINE CATHETER DRAINING TO GRAVITY WITH CONCENTRATED URINE IN COLLECTION BAG. WILL MONITOR FOR NEEDS.
[2019-12-31 21:58] VITALS: BP 173/103
--- NOTE | 2020-01-01 03:47 | NUR ---
PT BATHED AND ALL LINENS AND GOWN CHANGED. ORAL CARE PERFORMED. ELAINE CARE PERFORMED. CHANGED MEPILEX DRESSING ON RIGHT HIP...2" X 2" BLISTER THAT HAS POPPED...REDNESS AND LIQUID. CLEANSED AND APPLIED NEW DRESSING. POSITIONED WITH MULTIPLE PILLOWS FOR COMFORT. WILL CONTINUE TO MONITOR CLOLSEY FOR NEEDS.
--- NOTE | 2020-01-01 08:00 | NUR ---
ASSESSMENT PER FLOW SHEET. PATIENT IS BREATHING APROX37 RESP PER MIN. HIS LUNG ZAPIEN ARE NOISY WITH KRACKLES. PATIENT REPOSITIONED FOR COMFORT. MONITOR
[2020-01-01 08:14] VITALS: BP 153/104
--- NOTE | 2020-01-01 08:41 | NUR ---
TYLENOL ORDERED PER MAR FOR TEMP OF 103.3.
--- NOTE | 2020-01-01 09:00 | NUR ---
IV RESITED TO RIGHT FOREARM X1 STICK , ASEPTIC TECH 22G.
--- NOTE | 2020-01-01 09:06 | MORECARE ---
CASE MANAGEMENT DISCHARGE SUMMARY PATIENT: BRIGETTE LIU UNIT: [id number] ADM DATE: 12/26/19 AGE: 84 : 34 SEX: M ROOM/BED: D.2224 AUTHOR: WHITNEY HEIN PHYSICIAN: REFERRING PHYSICIAN: PHILIP BAKER MD DATE OF SERVICE: 01/01/20 Discharge Plan Patient Name: BRIGETTE LIU Facility: [facility]:[place] : 1935 Planned Disposition: Anticipated Discharge Date: Discharge Date: Expected LOS: Initial Reviewer: [email or web address] Initial Review Date: 12/26/2019 Generated: 01/01/20 10:06 am Last DP export: 12/28/19 3:35 p Patient Name: BRIGETTE LIU Page [id number] at 0906 All edits/amendments must be made on the electronic document DICTATION DATE: 01/01/20905 MERIT SYSTEM DIRECTOR: DM 01/01/20905 RPT#: [id number] DC DATE: STATUS: ADM IN [facility] [address] [place] [address] END OF REPORT
--- NOTE | 2020-01-01 16:15 | NUR ---
Positioned on right side, propped by pillows. Coccyx is blanchable red. Zinc paste is being applied. Turn q 2 schedule. Wound care continues to monitor.
--- NOTE | 2020-01-01 17:19 | NUR ---
DAUGHTER AT BEDSIDE. PATIENT STILL LETHARGIC. MONITOR FOR NEEDS
[2020-01-01 20:58] VITALS: BP 120/72
--- NOTE | 2020-01-02 01:11 | NUR ---
PT RESTING IN BED. EYES CLOSED. BREATHING LABORED, KUSSMAULS. LUNG SOUNDS CRACKLES WHEEZING THROUGHOUT. 5LO2 NASAL CANNULA. IV SITE RT FA DRESSING CLEAN DRY AND INTACT. NO SIGNS OF INFECTION OR INFULTRATION. ELAINE IN PLACE. WILL CONTINUE COMFORT CARE. BED LOWERED AND LOCKED. CALL LIGHT IN REACH.
--- NOTE | 2020-01-02 02:19 | NUR ---
I have reviewed this patient and I concur with the Shift Assessment completed by the Licensed Practical Nurse today this shift.
[2020-01-02 08:30] VITALS: BP 111/70
--- NOTE | 2020-01-02 16:55 | NUR ---
PATIENT IS NOT BREATHING AND NOT HEART BEAT ASCULATATED OR PULSE FELT. PATIENT HOSPICE. NOTFIED HOSPICE NURSE. PATIENT DAUGHTER AT BEDSIDE.
--- NOTE | 2020-01-02 17:22 | NUR ---
PATIENT PRONOUNCED AT THIS TIME BY HOSPICE NURSE. SHE CALLED PASSEMENTERIE WORKER AND CLEANED PATIENT UP. RN NOTIFIED JOHN.
--- NOTE | 2020-01-02 19:02 | NUR ---
HOME HERE TO TAKE PATIENT. FAMILY ALREADY GONE. PATIENT HAS NO PERSONAL BELONGINGS.
--- NOTE | 2020-01-03 07:36 | MORECARE ---
CASE MANAGEMENT DISCHARGE SUMMARY PATIENT: BRIGETTE LIU UNIT: [id number] ADM DATE: 12/26/19 AGE: 84 : 34 SEX: M ROOM/BED: D.2224 AUTHOR: WHITNEY HEIN PHYSICIAN: REFERRING PHYSICIAN: PHILIP BAKER MD DATE OF SERVICE: 01/03/20 Discharge Plan Patient Name: BRIGETTE LIU [facility] : 1935 Planned Disposition: Anticipated Discharge Date: Discharge Date: 01/02/2020 Expected LOS: Initial Reviewer: [email or web address] Initial Review Date: 12/26/2019 Generated: 01/03/20 8:35 am Last DP export: 01/01/20 8:06 am Patient Name: BRIGETTE LIU Page [phone] at 0736 All edits/amendments must be made on the electronic document DICTATION DATE: 01/03/2035 FUR BLOWING MACHINE ATTENDANT: SHAILA 01/03/2035 RPT#: [id number] DC DATE:01/02/20 STATUS: DIS IN [facility] [address] [place] [address] END OF REPORT
== END 2020-01-02 19:00 | DRG 951 ==
LOC: D.MS 15:04
PROVIDERS: ADMIT Legal Medicine; ATTEND Legal Medicine
DX: Z51.5 Encounter for palliative care (principal)